=== PATIENT | male | born 1945 | race Caucasian/White ===

== ENCOUNTER 2016-10-24 19:40 | Emergency (ER) | payer MEDICARE, BC ==
--- NOTE | 2016-10-24 20:40 | UC ---
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 HE WAS HOLDING THE BAR OVER HIS HEAD WHEN HIS SHIRT GOT CAUGHT ON A HOOK ON THE TRACTOR AND PREVENTED HIM FROM BEING ABLE TO LOWER THE BAR SAFELY DOWN. IT FELL AND STRUCK HIM ON THE TOP OF HIS HEAD. NO LOC. HE ALSO SUFFERED AN ABRASION TO HIS LEFT ARM AND 2 SMALL LACERATIONS IN LEFT AXILLA. HAS A SLIGHT ALFONSO BUT DENIES ANY NEUROLOGIC SX. UP TO DATE TETANUS. - History of Current Complaint Chief Complaint: UCTrauma Stated Complaint: HEAD INJURY, AND LIP LACERATION Time Seen by Provider: 10/24/16 20:06 Hx Obtained From: Patient, Family/Buttonhole Maker Hand - Onset/Duration: Sudden Onset, Lasting Hours, Still Present Onset Of Pain: Immediate Severity Initially: Moderate Severity Currently: Moderate Pain Intensity: 5 Pain Scale Used: 0-10 Numeric Mechanism Of Injury: Blunt Trauma Aggravating Factor(s): Nothing Alleviating Factor(s): Nothing Associated Signs And Symptoms: Positive: Swelling - HEAD. Negative: Loss Of Consciousness - Allergies/Home Medications Allergies/Adverse Reactions: Allergies Allergy/AdvReac Type Severity Reaction Status Date / Time No Known Allergies Allergy Verified 03/20/15 16:15 Home Medications: Home Medications Multiple Vitamin [Multivitamins] 10/24/16 [History Confirmed 10/24/16] Tamsulosin CAP* [Flomax CAP*] 10/24/16 [History Confirmed 10/24/16] Vitamin B Complex CAP* [B Complex CAP*] 10/24/16 [History] PMH/Surg Hx/FS Hx/Imm Hx Endocrine History Of: Reports: Diabetes - type 2, Thyroid Disease - HYPO, Hypothyroidism Cardiovascular History Of: Reports: Hypertension Denies: Cardiac Disorders Respiratory History Of: Denies: COPD, Asthma GI/ History Of: Denies: Ulcer Psychological History Of: Reports: Bipolar Disorder - Surgical History Surgical History: Yes Surgery Procedure, Year, and Place: lt foot bone spur removal X2, bunionectomy, carpal tunnel repair bilat. bilat rotator cuff injuries. subderal pressure release. fusion done to neck 2 yrs ago. - Family History Known Family History: Positive: Hypertension, Diabetes - Social History Alcohol Use: None Substance Use Type: None Smoking Status (MU): Never Smoked Tobacco - Immunization History Most Recent Tetanus Shot: 11/09/13 Review of Systems Constitutional: Negative Skin: Other - ABRASIONS, LACERATIONS Respiratory: Negative Cardiovascular: Negative Gastrointestinal: Negative Neurological: Headache All Other Systems Reviewed And Are Negative: Yes Physical Exam Triage Information Reviewed: Yes Appearance: Well-Appearing, No Pain Distress, Well-Nourished Vital Signs: Initial Vital Signs Temp 99.1 F 10/24/16 19:46 Pulse 86 10/24/16 19:46 Resp 18 10/24/16 19:46 BP 158/72 10/24/16 19:46 Pulse Ox 96 10/24/16 19:46 Vital Signs Reviewed: Yes Eyes: Positive: Conjunctiva Clear ENT: Positive: Hearing grossly normal, Pharynx normal, TMs normal Neck: Positive: Supple Respiratory: Positive: No respiratory distress, No accessory muscle use Cardiovascular: Positive: Pulses Normal Abdomen Description: Positive: Soft Musculoskeletal: Positive: ROM Intact Neurological: Positive: Alert Psychological: Positive: Normal Response To Family, Age Appropriate Behavior Skin: Positive: Other - 4CM SWELLING TOP OF SCALP WITH CENTRALLY LOCATED 2CM ABRASION. LINEAR ABRASION EXTENDING LENGTH OF LEFT ARM. 2.5CM LINEAR LACERATION LEFT AXILLA. 1.5 CM LINEAR LACERATION LEFT AXILLA. 2.5CM CURVED LACERATION LOWER LIP THROUGH AND THROUGH.. Negative: rashes Procedures - Laceration/Wound Repair 1 Location: mouth - LOWER LIP Description: Irregular - CURVED Anesthesia: Local, 1.0% Length, Depth and Shape: 2.5CM CURVED, THROUGH AND THROUGH Betadine Prep?: No Laceration/Wound Explored: clean Closure: Single Layer Suture Type: Other - 5-0 SURGIPRO Number of Sutures: 5 Layer Closure?: No Sterile Dressing Applied?: Yes 2 Location: upper extremity - LEFT AXILLA Description: Linear Anesthesia: Local, 1.0% Length, Depth and Shape: 2.5CM LINEAR, 2 MM DEEP Betadine Prep?: No Laceration/Wound Explored: clean Closure: Single Layer Suture Type: Other - 5-0 SURGIPRO Number of Sutures: 5 Layer Closure?: No Sterile Dressing Applied?: Yes 3 Location: upper extremity - LEFT AXILLA Description: Linear Anesthesia: Local, 1.0% Length, Depth and Shape: 1.5CM LINEAR, 2MM DEEP Laceration/Wound Explored: clean Closure: Single Layer Suture Type: Other - 5-0 SURGIPRO Number of Sutures: 3 Layer Closure?: No Sterile Dressing Applied?: Yes Diagnostics - Radiology CT HEAD W/O CONTRAST Xray Interpretation: No Acute Changes Radiology Interpretation Completed By: Radiologist Minor Trauma Course/Dx - Differential Dx/Diagnosis Provider Diagnoses: 1. HEAD INJURY. 2. LACERATION REPAIR - LOWER LIP, LEFT AXILLA X 2. 3. ABRASIONS - SCALP AND LEFT ARM Discharge - Discharge Plan Condition: Stable Disposition: HOME Prescriptions: Acetaminop/Codeine 30 MG TAB* [Tylenol/Codeine 30 MG TAB*] 1 - 2 tab PO Q6H PRN #20 tab MDD 8 PRN Reason: Pain Cephalexin CAP* [Keflex 500 CAP*] 1,000 mg PO BID #18 cap Lactobacillus Acidophilu (GG)* [Culturelle*] 1 cap PO BID #20 cap Patient Education Materials: Laceration (ED), Head Injury (ED), Abrasion (ED) Referrals: Sharan Lazcano MD [Primary Care Provider] - If Needed Additional Instructions: GO TO THE ER WITHOUT FAIL IF YOU DEVELOP UNEQUAL PUPILS, VISUAL DISTURBANCE, GAIT INSTABILITY, SPEECH DIFFICULTY, NAUSEA/VOMITING, WORSENING HEADACHE, DIZZINESS, CONFUSION, WEAKNESS OR ANY OTHER CONCERNING SYMPTOMS. APPLY THIN LAYER ANTIBIOTIC OINTMENT UNDER BANDAGE FOR FIRST 3-4 DAYS ONLY. CHANGE BANDAGE DAILY AND NEEDED IF IT BECOMES SOILED OR WET. SEEK FOLLOW-UP IF YOU DEVELOP SPREADING REDNESS OF THE SKIN, PURULENT DRAINAGE, FEVER, INCREASED PAIN OR ANY OTHER CONCERNING SYMPTOMS. RETURN FOR SUTURE REMOVAL IN 10 DAYS
--- NOTE | 2016-10-24 21:09 | RAD ---
Indication: Head trauma. CT of the brain was performed without IV contrast. Ventricular structures are midline. No midline shift is noted. The extraction spaces are unremarkable. There is no evidence of intracranial mass or hemorrhage. No other high or low density lesions are identified. Overall no changes noted since previous exam of May 10, 2016. IMPRESSION: No intracranial mass or hemorrhage is noted.
[2016-10-24] MEDS ORDERED: Lidocaine 1% MPF* 2 ML VIAL INJ ONE (21:17)
[2016-10-24] MEDS ORDERED: Acetaminop/Codeine 30 MG TAB* 1 TAB (300 MG/30 MG) PO ONE (23:01)
[2016-10-24] MEDS ORDERED: Cephalexin CAP* 500 MG PO ONE (23:05)
[2016-10-24 23:13] VITALS: BP 142/75
== END 2016-10-24 23:25 | disposition home or self-care (01) ==
LOC: UCEAST 19:40
DX: S09.90XA Unspecified injury of head, initial encounter (principal); S41.112A Laceration without foreign body of left upper arm, initial encounter; S01.511A Laceration without foreign body of lip, initial encounter; S40.812A Abrasion of left upper arm, initial encounter; W20.8XXA Other cause of strike by thrown, projected or falling object, initial encounter; Y93.89 Activity, other specified; Y92.9 Unspecified place or not applicable; E11.8 Type 2 diabetes mellitus with unspecified complications; E03.9 Hypothyroidism, unspecified; I10 Essential (primary) hypertension; F31.9 Bipolar disorder, unspecified
CPT/HCPCS: 12002; 12011; 70450; 99213; A9270-GY; G0463

== ENCOUNTER 2019-04-03 08:32 | Inpatient (IN) | payer MEDICARE, OTHER ==
--- OUTSIDE RECORDS SUMMARY | 2019-04-03 15:34 | XMS REPORT | Summary of Care ---
:1945 Author Organization [facility] Address [address] [facility] [place] [address] Care Team Providers Name Role Phone Sharan Lazcano MD Primary Care Provider Reason for Referral MRI/CAT/PET Scan (Routine) Status Reason Specialty Diagnoses / Referred By Referred To Procedures Contact Contact Authorized Diagnoses Spinal stenosis of cervical region [place], Procedures MR CERVICAL SPINE WO CONTRAST MD Fabio [address] [facility] [place] [address] Reason for Visit Reason Comments Neck Pain Refer to Department Only (Routine) Status Reason Specialty Diagnoses / Referred By Referred To Procedures Contact Contact Closed NEUROSURGERY / Diagnoses Radiculopathy, unspecified spinal region John Martinez, Neurosurgery [address] [place] [address] Encounter Details Date Type Department Care Team Description 02/16/2019 Office Visit [facility] Neurosurgery [place], Cervical spinal stenosis (Primary Dx); [address] [facility] MD Fabio Radiculopathy, unspecified spinal region; [place] [address] [address] Spinal stenosis of cervical region [phone] [place] [address] Allergies No Known Allergiesdocumented as of this encounter (statuses as of 02/16/2019) Medications Medication Sig Dispensed Refills Start Date End Date Status metroNIDAZOLE (FLAGYL) Take 250 mg by 0 Active 250 MG Oral Tab mouth THREE TIMES DAILY. amlodipine-benazepril Take 1 Cap by 0 Active (LOTREL) 5-20 MG Oral mouth DAILY. Cap glipiZIDE (GLUCOTROL XL) Take 10 mg by 0 Active 10 MG Oral TABLET SR 24 mouth DAILY. HR metFORMIN (GLUCOPHAGE) Take 500 mg by 0 Active 500 MG Oral Tab mouth. LITHIUM CARBONATE PO Take 900 mg by 0 Active mouth. sertraline (ZOLOFT) 100 Take 100 mg by 0 Active MG Oral Tab mouth DAILY. Rosuvastatin Calcium Take by mouth. 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 documented as of this encounter Last Filed Vital Signs Vital Sign Reading Time Taken Comments Blood Pressure 128/68 02/16/2019 9:27 AM EDT Pulse - - Temperature - - Respiratory Rate - - Oxygen Saturation - - Inhaled Oxygen Concentration - - Weight 95.3 kg (210 lb) 02/16/2019 9:27 AM EDT Height 177.8 cm (5' 10") 02/16/2019 9:27 AM EDT Body Mass Index 30.13 02/16/2019 9:27 AM EDT documented in this encounter Progress Notes Fabio Mcdaniel MD - 02/16/2019 9:30 AM EDT PATIENT: Ashutosh Mcfarland Jr : 1945 DATE OF SERVICE: 02/16/2019 REFERRING PRACTITIONER: John Martinez PRIMARY CARE PROVIDER: Sharan Lazcano CHIEF COMPLAINT: Chief Complaint Patient presents with Neck Pain HISTORY OF PRESENT ILLNESS: Mr. Mcfarland is a 73-year-old gentleman with a progressive history of weakness and numbness affecting the hands and arms and legs which has worsened over the last year. He is now using a walker because ofdifficulty standing up straight. He underwent carpal tunnel release many years ago with relief of his initial symptoms. He now complains of numbness in both hands which affects multiple digits of thehands. Recent nerve conduction studies by report suggest carpal tunnel syndrome plus radiculopathy. He denies bowel or bladder difficulty. He is retired. He has no films whatsoever. Past Medical History: Diagnosis Date Carpal tunnel syndrome bilateral Past Surgical History: Procedure Laterality Date BUNIONECTOMY NEC 2006 OTHER BONE REPAIR shoulder surgery HI RADICAL RESEC RADIAL HEAD/NECK neck surgery HI SPINE SURGERY PROCEDURE UNLISTED low back History reviewed. No pertinent family history. Social History Socioeconomic History Marital status: Spouse name: Not on file Number of children: Not on file Years of education: Not on file Highest education level: Not on file Occupational History Not on file Social Needs Financial resource strain: Not on file Food insecurity: Worry: Not on file Inability: Not on file Transportation needs: Medical: Not on file Non-medical: Not on file Tobacco Use Smoking status: Never Smoker Smokeless tobacco: Never Used Substance and Sexual Activity Alcohol use: Not on file Drug use: Not on file Sexual activity: Not on file Lifestyle Physical activity: Days per week: Not on file Minutes per session: Not on file Stress: Not on file Relationships Social connections: Talks on phone: Not on file Gets together: Not on file Attends scientology service: Not on file Active member of club or organization: Not on file Attends meetings of clubs or organizations: Not on file Relationship status: Not on file Intimate partner violence: Fear of current or ex partner: Not on file Emotionally abused: Not on file Physically abused: Not on file Forced sexual activity: Not on file Other Topics Concern Not on file Social History Narrative Not on file Current Outpatient Medications Medication amlodipine-benazepril (LOTREL) 5-20 MG Oral Cap glipiZIDE (GLUCOTROL XL) 10 MG Oral TABLET SR 24 HR LITHIUM CARBONATE PO metFORMIN (GLUCOPHAGE) 500 MG Oral Tab metroNIDAZOLE (FLAGYL) 250 MG Oral Tab Rosuvastatin Calcium (CRESTOR) 5 MG Oral Tab sertraline (ZOLOFT) 100 MG Oral Tab No Known Allergies REVIEW OF SYSTEMS: Psychological ROS: negative Ophthalmic ROS: negative ENT ROS: negative Hematological and Lymphatic ROS: negative Endocrine ROS: negative Respiratory ROS: no cough, shortness of breath, or wheezing Cardiovascular ROS: no chest pain or dyspnea on exertion Gastrointestinal ROS: no abdominal pain, change in bowel habits, or black or bloody stools Genito-Urinary ROS: negative Musculoskeletal ROS: negative Neurological ROS: negative PHYSICAL EXAMINATION: BP 128/68 | Ht 5' 10" (1.778 m) | Wt 210 lb (95.3 kg) | BMI 30.13 kg/m Body mass index is 30.13 kg/m. GENERAL: alert, oriented, no acute distress. SKIN: normal, no rashes or abnormalities noted. HEENT: conjunctivae are clear, nasopharynx is with mild edema, pink mucosa, and clear secretions, oropharynx is clear. NECK: Normal range of motion LOWER BACK: Normal range of motion LUNGS: clear to auscultation bilaterally. HEART: Regular rate and rhythm without murmurs or gallops. ABDOMEN: Normal bowel sounds without distension NEUROLOGICAL: CONSTITUTIONAL: The patient appears to be in no acute distress. MUSCULOSKELETAL: His gait is somewhat wide-based and he walks with the aid of a walker. Motor tone is normal in both upper and lower extremities. Upper Extremity Deltoid Tricep Bicep Finger Extension Wrist Extension Intrinsics Windlasser Right 4/5 4/5 4/5 5/5 5/5 5/5 5/5 Left 4/5 4/5 4/5 5/5 5/5 5/5 5/5 Lower Extremity Hip Flexion Knee Flexion Knee Extension Dorsi Flexion Plantar Flexion EHL Right 4/5 5/5 5/5 5/5 5/5 5/5 Left 4/5 5/5 5/5 5/5 5/5 5/5 NEUROLOGICAL: Oriented to time, place, and person. Memory appears to be grossly intact. Language function appears to be normal with normal receptive and motor speech function. CRANIAL NERVES: 2nd cranial nerve: Intact 3rd, 4th, and 6th cranial nerves: pupils equal round and reactive to light. Full EOMs. 5th cranial nerve: Intact 7th cranial nerve: Intact 8th cranial nerve: Intact 9th, 10th cranial nerves: Intact 11th cranial nerve: Intact. 12th cranial nerve: Intact SENSATION: There is loss of light touch sensation in the hands but pinprick does seem to be preserved in both the arms and legs. REFLEXES: Biceps BR Triceps Knee Ankle Right 2+ 2+ 2+ 2+ 2+ Left 2+ 2+ 2+ 2+ 2+ Day's sign: Negative Babinski: Negative COORDINATION: Knwetz-sbaz-rjwjaw examination done well. IMPRESSION / PLAN: ICD-9-CM ICD-10-CM 1. Cervical spinal stenosis 723.0 M48.02 2. Radiculopathy, unspecified spinal region 729.2 M54.10 REFER TO NEUROSURGERY 3. Spinal stenosis of cervical region 723.0 M48.02 MR CERVICAL SPINE WO CONTRAST Medical decision making: This gentleman has significant weakness of both the upper and lower extremities. Given his subjective symptoms of numbness as well I suspect he has cervical myelopathy which is rapidly progressing. I would like to obtain a MRI of his cervical spine and have him return as soon as possible. Author: Fabio Mcdaniel MD 02/16/2019 09:38 documented in this encounter Plan of Treatment Date Type Specialty Care Team Description 02/23/2019 Ancillary Procedure Radiology 03/09/2019 Office Visit Neurosurgery Fabio Mcdaniel MD [address] [place] [address] [phone] Name Type Priority Associated Diagnoses Order Schedule MR CERVICAL SPINE WO Imaging Routine Spinal stenosis of Expected: 2018, CONTRAST cervical region Expires: 02/16/2020 Health Maintenance Due Date Last Done Comments MEDICARE ANNUAL WELLNESS VISIT 1945 DEPRESSION SCREENING 1958 HIV SCREENING 1961 LIPID DISORDER SCREENING 1964 HEPATITIS C SCREENING 1986 ZOSTER IMMUNIZATION SERIES (1 of 1996 2) FALL RISK ASSESSMENT 2011 PNEUMOCOCCAL 65+YRS (1 of 2 - 2011 PCV13) COLONOSCOPY SCREENING 08/23/2018 08/23/2009 INFLUENZA VACCINE (#1) 2019 HPV IMMUNIZATION SERIES Aged Out No longer eligible based on patient's age to complete this topic MENINGOCOCCAL VACCINE IMM Aged Out No longer eligible based on patient's age to complete this topic documented as of this encounter Results Not on filedocumented in this encounter Visit Diagnoses Diagnosis Cervical spinal stenosis - Primary Spinal stenosis in cervical region Radiculopathy, unspecified spinal region Spinal stenosis of cervical region Spinal stenosis in cervical region documented in this encounter Insurance Payer Benefit Plan / Subscriber ID Effective Phone Address Type Group Dates MEDICARE MEDICARE PART A xxxxxxxxxxx 2004-Prese Medicare & B nt COMMERCIAL COMMERCIAL xxxxxxxxx Effective for Commercial GENERIC GENERIC PLAN all dates documented as of this encounter
--- OUTSIDE RECORDS SUMMARY | 2019-04-03 15:34 | XMS REPORT | Summary of Care ---
:1945 Author Organization [facility] Address [address] [facility] [place] [address] Care Team Providers Name Role Phone Sharan Lazcano MD Primary Care Provider Reason for Visit Reason Comments Neck Pain follow up to mri Encounter Details Date Type Department Care Team Description 03/09/2019 Office Visit [facility] Neurosurgery [place], Cervical spinal [address] [facility] MD Fabio stenosis (Primary Dx) [place] [address] 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 Hypercholesterolemia 08/17/2009 Overview: W/normal triglycerides documented as of this encounter (statuses as of 03/09/2019) Social History Tobacco Use Types Packs/Day Years [...] Sign Reading Time Taken Comments Blood Pressure 123/70 03/09/2019 9:43 AM EDT Pulse - - Temperature - - Respiratory Rate - - Oxygen Saturation - - Inhaled Oxygen Concentration - - Weight 95.3 kg (210 lb) 03/09/2019 9:43 AM EDT Height 177.8 cm (5' 10") 03/09/2019 9:43 AM EDT Body Mass Index 30.13 03/09/2019 9:43 AM EDT documented in this encounter Progress Notes Fabio Mcdaniel MD - 03/09/2019 9:50 AM EDT PATIENT: Ashutosh Mcfarland Jr : 1945 DATE OF SERVICE: 03/09/2019 REFERRING PRACTITIONER: Sharan Lazcano PRIMARY CARE PROVIDER: Sharan Lazcano CHIEF COMPLAINT: Chief Complaint Patient presents with Neck Pain follow up to mri HISTORY OF PRESENT ILLNESS: Mr. Mcfarland returns with a MRI scan that shows significant stenosis with pannus formation at C1-2. Subluxation is not seen. This definitely explains his symptoms I think he would benefit from decompression and fusion. Given his previous surgery I would think a C1-C4 stabilization would be adequate although we cannot rule out having to incorporate the occiput at this time. Risk and benefits of surgery were discussed with the patient. Past Medical History: Diagnosis Date Carpal tunnel syndrome bilateral Past Surgical History: Procedure Laterality Date BUNIONECTOMY NEC 2006 OTHER BONE REPAIR shoulder surgery CT RADICAL RESEC RADIAL HEAD/NECK neck surgery CT SPINE SURGERY PROCEDURE UNLISTED low back History [...] file Gets together: Not on file Attends confucianist service: Not on file Active member of [...] Tab No Known Allergies REVIEW OF SYSTEMS: BP 123/70 | Ht 5' 10" (1.778 m) | Wt 210 lb (95.3 kg) | BMI 30.13 kg/m Body mass index is 30.13 kg/m. Psychological ROS: negative Ophthalmic ROS: negative ENT ROS: negative Hematological and Lymphatic ROS: negative Endocrine ROS: negative Respiratory ROS: no cough, shortness of breath, or wheezing Cardiovascular ROS: no chest pain or dyspnea on exertion Gastrointestinal ROS: no abdominal pain, change in bowel habits, or black or bloody stools Genito-Urinary ROS: negative Musculoskeletal ROS: negative Neurological ROS: negative Physical examination: Lung anthony were clear Heart exam revealed a regular rate and rhythm. The abdomen was soft. His neurological examination was unchanged from his previous initial note. IMPRESSION / PLAN: ICD-9-CM ICD-10-CM 1. Cervical spinal stenosis 723.0 M48.02 Medical decision making: We plan to proceed with C1 laminectomy for decompression of stenosis at C1 to with a C1-C4 posterior fusion, possibly also including the occiput. Author: Fabio Mcdaniel MD 03/09/2019 09:58 documented in this encounter Plan of Treatment Health Maintenance Due Date Last Done Comments [...] - Primary Spinal stenosis in cervical region documented in this encounter Insurance Payer Benefit Plan / Subscriber ID Effective Phone Address Type Group Dates MEDICARE MEDICARE PART A xxxxxxxxxxx 2004-Prese Medicare & B nt COMMERCIAL COMMERCIAL xxxxxxxxx Effective for Commercial GENERIC GENERIC PLAN all dates documented as of this encounter
[2019-04-03] MEDS ORDERED: Docusate CAP* 100 MG PO PRN (16:29)
[2019-04-03] MEDS ORDERED: Senna TAB 8.6 mg* TAB PO PRN (16:29)
[2019-04-03] MEDS ORDERED: Acetaminophen TAB* 325 MG PO PRN (16:29)
[2019-04-03] MEDS ORDERED: Magnesium Hydroxide LIQ* 30 ML UDC PO PRN (16:29)
[2019-04-03] MEDS ORDERED: Insulin REGULAR(*) 1 UNITS UNIT SUBCUT ONE (17:13)
[2019-04-03] MEDS: glipiZIDE TAB* 5 MG PO SCH (17:43)
[2019-04-03] MEDS: oxyCODONE/Acetamin 5/325 MG* TAB PO PRN (17:43)
[2019-04-03] MEDS: metFORMIN* 500 MG TAB PO SCH (17:43)
--- NOTE | 2019-04-03 19:45 | HP ---
HISTORY AND PHYSICAL: DATE OF ADMISSION: 04/03/19 REASON FOR ADMISSION: Cervical myelopathy, status post cervical fusion from C1 to C4. HISTORY OF PRESENT ILLNESS: Ashutosh Mcfarland is a 73-year-old male. He has a medical history significant for diabetes mellitus as well as bipolar disease. About 2 years ago, the patient had significant numbness in his hands. At first , it was thought it was diabetic peripheral neuropathy. He was sent for EMG nerve conduction studies and was diagnosed with carpal tunnel. He was sent to a hand surgeon. The hand surgeon thought he might have more going on than carpal tunnel and referred the patient to a neurosurgeon. He saw Dr. Fabio Mcdaniel at [place] and was sent for an MRI of his cervical spine. The MRI was done on 02/23/19. It did show central spinal canal narrowing at the mid cervical levels with minimal cord impingement. It also showed a marked central spinal canal stenosis at the C1 level impinging and deforming the spinal cord. Although no myelopathic changes were seen on MRI, the patient was demonstrating myelopathy on exam. The patient was admitted to [facility] on 04/01/19. He underwent a posterior C1 laminectomy with a C1 through C4 fusion. After surgery, the patient might have had some minimal improvement in his weakness and balance, but was felt to have physical therapy and occupational therapy needs. He is now being admitted for inpatient rehab so that he might return to independent living. PAST MEDICAL HISTORY: Significant for the aforementioned bipolar disease, diabetes. He has got a history of ADHD. He has hypercholesterolemia, hypertension, hypothyroidism, and he has significant osteoarthritis in his hands and peripheral neuropathy affecting both feet. CURRENT MEDICATIONS: Include: 1. Norvasc. 2. Glucotrol. 3. Insulin. 4. Synthroid. 5. Lisinopril. 6. Glucophage. 7. Percocet for pain control. 8. Crestor. 9. Zoloft. 10. Topamax. ALLERGIES: He has no known drug allergies. SOCIAL HISTORY: He is a nonsmoker, nondrinker. He lives with his in a two -story house. There are two steps to enter. REVIEW OF SYSTEMS: The patient reports no current shortness of breath or chest pain. PHYSICAL EXAMINATION VITAL SIGNS: The patient's temperature is 97.8, blood pressure is 128/67, pulse is 100, respirations 18. HEENT: His extraocular movements are intact. Tongue is midline. NECK: Immobilized in a cervical collar. LUNGS: Sounded clear to auscultation bilaterally. HEART: Heart sounds are regular. S1 and S2 are audible. ABDOMEN: Soft and nontender. EXTREMITIES: His hands were examined. There is wasting of the intrinsic hand muscles and some deformities of the fingers consistent with osteoarthritis. His peripheral pulses are intact. NEUROLOGIC: Sensation was diminished in both his feet and his hands. Muscle strength is roughly 4/5 in his upper extremities and 4+/5 in his lower extremities. FUNCTIONAL EXAM: He transfers with contact guard to min assist. ASSESSMENT: Cervical myelopathy due to cervical cord compression at C1. PLAN: Integrate him into a comprehensive and therapeutic rehab program with the following goals: 1. Physical Therapy will work with the patient. They are going to work on functional transfer training, ambulation training with a walker. 2. Occupational Therapy will see the patient, work on his activities of daily living including toileting and toilet transfers. 3. Pharmaceutical prophylaxis for DVT is not indicated because of his recent cervical surgery. We are going to use BRAD stockings. 4. For his diabetes, we are going to continue his glipizide and metformin. We are going to do fingersticks 4 times a day with sliding scale insulin coverage. 5. For his bipolar disease, we will continue him on Zoloft and Topamax. 6. For his hypertension, we will continue him on amlodipine. We will give him lisinopril instead of his usual benazepril. 7. For his hypothyroidism, continue Synthroid. 8. For his hypercholesterolemia, continue Crestor. 9. security services manager will be closely involved to make sure that any services and equipment the patient requires are in place prior to discharge. 10. Family training as appropriate. 11. Home with appropriate services. ESTIMATED LENGTH OF STAY: 7 to 10 days. [id number]/CPS #: [id number] ETHAN
[2019-04-03] MEDS: Insulin REGULAR(*) 1 UNITS UNIT SUBCUT SCH (20:50)
[2019-04-03] MEDS: Topiramate TAB(*) 25 MG PO SCH (21:30)
[2019-04-03] MEDS: Sertraline* 100 MG TAB PO SCH (21:30)
[2019-04-04] MEDS: Levothyroxine TAB* 100 MCG TAB PO SCH (06:12)
[2019-04-04] MEDS ORDERED: Insulin REGULAR(*) 1 UNITS UNIT SUBCUT SCH (07:30)
[2019-04-04] MEDS: Insulin REGULAR(*) 1 UNITS UNIT SUBCUT SCH ×2 (08:35→12:18)
[2019-04-04] MEDS: metFORMIN* 500 MG TAB PO SCH ×2 (08:36→17:20)
[2019-04-04] MEDS: glipiZIDE TAB* 5 MG PO SCH ×2 (08:36→17:20)
[2019-04-04] MEDS: Topiramate TAB(*) 25 MG PO SCH ×2 (08:36→19:39)
[2019-04-04] MEDS: Lisinopril TAB* 10 MG PO SCH (08:36)
[2019-04-04] MEDS: amLODIPine TAB* 5 MG PO SCH (08:36)
[2019-04-04] MEDS ORDERED: Dextrose 50% VIAL 50 ml IV PUSH PRN (14:31)
--- NOTE | 2019-04-04 14:37 | PN ---
Progress Note Date of Service: 04/04/19 Note: RADHA THOMAS JR was visited. Therapy notes read and reviewed. He was able to do therapy today and his diarrhea has stopped. Otherwise doing okay Current Medications: Active Medications Generic Name Dose Route Start Last Admin Trade Name Freq PRN Reason Stop Dose Admin Acetaminophen 650 mg 04/03/19 16:29 Tylenol Tab* PO Q6H PRN MILD PAIN or TEMP > 100.4 Amlodipine Besylate 5 mg 04/04/19 09:00 04/04/19 08:36 Norvasc Tab* PO 5 mg DAILY LISA Administration Atorvastatin Calcium 20 mg 04/04/19 17:00 Lipitor* PO 1700 LISA Docusate Sodium 100 mg 04/03/19 16:29 Colace Cap* PO BID PRN CONSTIPATION Glipizide 5 mg 04/03/19 17:00 04/04/19 08:36 Glucotrol Tab* PO 5 mg 0800,1700 LISA Administration Levothyroxine Sodium 100 mcg 04/04/19 06:00 04/04/19 06:12 Synthroid Tab* PO 100 mcg DAILY@0600 LISA Administration Lisinopril 20 mg 04/04/19 09:00 04/04/19 08:36 Prinivil Tab* PO 20 mg DAILY LISA Administration Loperamide HCl 2 mg 04/03/19 16:38 Imodium Cap* PO .SEE DIRECTIONS PRN DIARRHEA Magnesium Hydroxide 30 ml 04/03/19 16:29 Milk Of Magnesia Liq* PO Q6H PRN CONSTIPATION Metformin HCl 500 mg 04/03/19 17:00 04/04/19 08:36 Glucophage* PO 500 mg 0800,1700 LISA Administration Oxycodone/Acetaminophen 1 tab 04/03/19 16:43 04/03/19 17:43 Percocet 5/325 Tab* PO 1 tab Q4H PRN Administration PAIN - MODERATE Senna 2 tab 04/03/19 16:29 Senokot 8.6 Mg Tab* PO BEDTIME PRN CONSTIPATION Sertraline HCl 200 mg 04/03/19 21:00 04/03/19 21:30 Zoloft* PO 200 mg 2100 LISA Administration Topiramate 25 mg 04/03/19 21:00 04/04/19 08:36 Topamax(*) PO 25 mg BID LISA Administration Vital Signs: Vital Signs Temp Pulse Resp BP Pulse Ox 98.6 F 89 16 136/70 97 04/04/19 06:08 04/04/19 06:08 04/04/19 08:00 04/04/19 06:08 04/04/19 08:00 Lab Results: Laboratory Results - last 24 hr 04/03/19 04/03/19 04/04/19 17:00 20:21 07:23 POC Glucose (mg/dL) 276 H 242 H 199 H 04/04/19 12:03 POC Glucose (mg/dL) 172 H Exam: GENERAL: In no distress NECK: Immobilized in collar LUNGS: Clear bilaterally HEART: Reg rhythm ABDOMEN: Soft EXTREMITIES: Intrinsic muscle wasting in hands and feet NEUROLOGIC: decreased sensation in hands and feet. Muscle strength 4/5 handgrip , 4+/5 otherwise Assessment/Plan: 1. Cervical Myelopathy C1, S/P C1-4 fusion: Collar on when OOB. PT/OT 2. Diabetes: Metformin/Glipizide/SSI 3. Bipolar Disease: Topamax/Zoloft 4. Hypothyroidism: Synthroid 5. HTN: Lisinopril (instead of Benazepril) and Norvasc 6. DVT Prophylaxis: TEDs 7. Advance Directives: Full code. is HCP 04/04/19 14:36 04/04/19 14:38 04/04/19 14:39
[2019-04-04] MEDS: Insulin LISPRO* 1 UNITS UNIT SUBCUT SCH ×2 (17:19→22:04)
[2019-04-04] MEDS: Atorvastatin* 20 MG TAB PO SCH (17:20)
[2019-04-04] MEDS: Loperamide CAP* 2 MG PO PRN ×2 (19:38→21:33)
[2019-04-04] MEDS: Sertraline* 100 MG TAB PO SCH (19:39)
[2019-04-05] MEDS: Levothyroxine TAB* 100 MCG TAB PO SCH (04:55)
[2019-04-05] MEDS: Lisinopril TAB* 10 MG PO SCH (08:29)
[2019-04-05] MEDS: amLODIPine TAB* 5 MG PO SCH (08:29)
[2019-04-05] MEDS: metFORMIN* 500 MG TAB PO SCH ×2 (08:29→17:13)
[2019-04-05] MEDS: Topiramate TAB(*) 25 MG PO SCH ×2 (08:29→21:39)
[2019-04-05] MEDS: Insulin LISPRO* 1 UNITS UNIT SUBCUT SCH ×4 (08:29→21:35)
[2019-04-05] MEDS: glipiZIDE TAB* 5 MG PO SCH ×2 (08:29→17:13)
[2019-04-05] MEDS: Atorvastatin* 20 MG TAB PO SCH (17:13)
--- NOTE | 2019-04-05 17:24 | PN ---
Progress Note Date of Service: 04/05/19 Note: ANOOPSAEED JALLOHAngel FUENTES was visited. Nursing notes read and reviewed. Blood sugars are still a little high and blood pressures were low last night. Will cut Lisinopril to 10 Current Medications: Active Medications Generic Name Dose Route Start Last Admin Trade Name Freq PRN Reason Stop Dose Admin Acetaminophen 650 mg 04/03/19 16:29 Tylenol Tab* PO Q6H PRN MILD PAIN or TEMP > 100.4 Amlodipine Besylate 5 mg 04/04/19 09:00 04/05/19 08:29 Norvasc Tab* PO 5 mg DAILY LISA Administration Atorvastatin Calcium 20 mg 04/04/19 17:00 04/05/19 17:13 Lipitor* PO 20 mg 1700 LISA Administration Dextrose 25 ml 04/04/19 14:31 Dextrose 50% Vial 50 Ml* IV PUSH .FOR FS < 60 - SS PRN FS < 60 Docusate Sodium 100 mg 04/03/19 16:29 Colace Cap* PO BID PRN CONSTIPATION Glipizide 5 mg 04/03/19 17:00 04/05/19 17:13 Glucotrol Tab* PO 5 mg 0800,1700 LISA Administration Insulin Human Lispro 0 - 12 units 04/04/19 16:30 04/05/19 17:14 Humalog* SUBCUT 4 unit ACHS LISA Administration Protocol Levothyroxine Sodium 100 mcg 04/04/19 06:00 04/05/19 04:55 Synthroid Tab* PO 100 mcg DAILY@0600 LISA Administration Lisinopril 20 mg 04/04/19 09:00 04/05/19 08:29 Prinivil Tab* PO 20 mg DAILY LISA Administration Loperamide HCl 2 mg 04/03/19 16:38 04/04/19 21:33 Imodium Cap* PO 2 mg .SEE DIRECTIONS PRN Administration DIARRHEA Magnesium Hydroxide 30 ml 04/03/19 16:29 Milk Of Magnesia Liq* PO Q6H PRN CONSTIPATION Metformin HCl 500 mg 04/03/19 17:00 04/05/19 17:13 Glucophage* PO 500 mg 0800,1700 LISA Administration Oxycodone/Acetaminophen 1 tab 04/03/19 16:43 04/03/19 17:43 Percocet 5/325 Tab* PO 1 tab Q4H PRN Administration PAIN - MODERATE Senna 2 tab 04/03/19 16:29 Senokot 8.6 Mg Tab* PO BEDTIME PRN CONSTIPATION Sertraline HCl 200 mg 04/03/19 21:00 04/04/19 19:39 Zoloft* PO 200 mg 2100 LISA Administration Topiramate 25 mg 04/03/19 21:00 04/05/19 08:29 Topamax(*) PO 25 mg BID LISA Administration Vital Signs: Vital Signs Temp Pulse Resp BP Pulse Ox 98.2 F 80 16 113/56 98 04/05/19 04:53 04/05/19 04:53 04/05/19 04:53 04/05/19 04:53 04/05/19 08:00 Lab Results: Laboratory Results - last 24 hr 04/04/19 04/04/19 04/05/19 16:34 20:20 07:34 POC Glucose (mg/dL) 140 H 250 H 208 H 04/05/19 12:02 POC Glucose (mg/dL) 175 H Exam: GENERAL: In no distress NECK: Immobilized in collar LUNGS: Clear bilaterally HEART: Reg rhythm ABDOMEN: Soft EXTREMITIES: Intrinsic muscle wasting in hands and feet NEUROLOGIC: decreased sensation in hands and feet. Muscle strength 4/5 handgrip , 4+/5 otherwise Assessment/Plan: 1. Cervical Myelopathy C1, S/P C1-4 fusion: Collar on when OOB. PT/OT 2. Diabetes: Metformin/Glipizide/SSI 3. Bipolar Disease: Topamax/Zoloft 4. Hypothyroidism: Synthroid 5. HTN: Lisinopril (instead of Benazepril) and Norvasc, cut lisinopril to 10 6. DVT Prophylaxis: TEDs 7. Advance Directives: Full code. is HCP 04/05/19 17:25
[2019-04-05] MEDS ORDERED: amLODIPine TAB* 5 MG PO SCH (17:26)
[2019-04-05] MEDS: Sertraline* 100 MG TAB PO SCH (21:39)
[2019-04-06 04:41] LABS: ABS Eosinophils 0.1 10^3/ul (0-0.6); ABS Lymphocytes 1.2 10^3/ul (1.0-4.8); ABS Monocytes 0.5 10^3/ul (0-0.8); ABS Neutrophils 3.2 10^3/ul (1.5-7.7); Eosinophil % 2.6 %; Hematocrit 36 % (42-52); Hemoglobin 12.7 g/dL (14.0-18.0); Lymphocyte % 23.4 %; Mean Corpuscular HGB Conc 35 g/dL (31-36); Mean Corpuscular Hemoglobin 31 pg (27-31); Mean Corpuscular Volume 87 fL (80-94); Mean Platelet Volume 7.2 fL (7.4-10.4); Nucleated Red Blood Cells % 0.2; Platelet Count 134 10^3/uL (150-450); Red Blood Count 4.16 10^6 /uL (4.18-5.48); Red Cell Distribution Width 14 % (10-15)
[2019-04-06 04:56] LABS: Albumin 3.8 g/dL (3.2-5.2); Albumin/Globulin Ratio 1.6 (1-3); BUN/Creatinine Ratio 31.1 (8-20); Calcium 9.1 mg/dL (8.6-10.3); EGFR African American 157.2 (>60); EGFR Non-African American 129.9 (>60); Globulin 2.4 g/dL (2-4); Total Bilirubin 0.8 mg/dL (0.2-1.0); Total Protein 6.2 g/dL (6.4-8.9)
[2019-04-06] MEDS: Levothyroxine TAB* 100 MCG TAB PO SCH (06:02)
[2019-04-06] MEDS: metFORMIN* 500 MG TAB PO SCH ×2 (08:09→17:33)
[2019-04-06] MEDS: glipiZIDE TAB* 5 MG PO SCH ×2 (08:10→17:33)
[2019-04-06] MEDS: Insulin LISPRO* 1 UNITS UNIT SUBCUT SCH ×4 (08:10→21:03)
[2019-04-06] MEDS: Lisinopril TAB* 10 MG PO SCH (08:10)
[2019-04-06] MEDS: Topiramate TAB(*) 25 MG PO SCH ×2 (08:10→21:05)
--- NOTE | 2019-04-06 12:42 | PMRUTEAM ---
PMRU: Team Meeting Current Status: Physical Therapy: Current Status Current Rolling Status Setup or Clean-up Assist Current Supine <-> Sit Status Setup or Clean-up Assist Current Sit <-> Stand Status Partial/Moderate Current Bed <-> Chair Status Partial/Moderate Transfer/Bed Mobility Rolling Walker Recommended Devices Current Picking Up Object Partial/Moderate Status Current Car Transfer Status Not attempted due to Current Ambulation Assistance Partial/Moderate Status Ambulation Assistive Device Rolling Walker Ambulation Conditions Two or More Turns Current Ambulation Distance 2x100' Manual Wheelchair Control/ Bilateral LE's Technique Current Wheelchair Propulsion Supervision/Touching Ability Status Wheelchair Distance (ft) 3x50' Current Stair Climbing Status Partial/Moderate Stair Climbing Assistive Left Railing,Right Railing Devices Number of Stairs Climbed 3 Current Curb Assistance Status Partial/Moderate Curb Assistive Devices Rolling Walker Occupational Therapy: Current Status Current Upper Body Dressing Partial/Moderate Status Current Lower Body Dressing Substantial/Maximal Status Current Footwear Status Dependent Current Bathing Status Partial/Moderate Current Grooming Status Setup or Clean-up Assist Current Toileting Status Supervision/Touching Current Toilet Transfer Status Supervision/Touching Current Eating Status Independent Nursing: Current Status Skin Deviations [Bilateral Abrasion Lower Anterior Leg] Skin Deviations [Posterior Incision Midline Cervical Spine] Skin Deviation Description [ washed with soap and water. r lower leg area open. Bilateral Lower Anterior Leg] l lower leg area healing well. Optifoam applied to both Skin Deviation Description [ intact. healing well. no drainage. washed with Posterior Midline Cervical soap and water. telfa applied. pads changed to Spine] cervical collar. Rec Therapy: Current Status Summary of Assessment and Pt. was open to conversation and cooperative Clinical Impression throughout. Pt.'s was present and she contributed to the conversation as well. Pt. identified with interests and involvement in most of them prior to admission. Pt. was interested in pet therapy and continued leisure visits. Treatment Goals Pt. will engage in leisure activities while on the unit. Treatment Plan Provide recreation therapy and encourage involvement. Goals: Physical Therapy: Goals Goals to Be Accomplished in ( 5-7 Days) Goal: Rolling Assistance Independent Goal Supine <-> Sit Status Independent Goal Sit <-> Stand Status Independent Goal Bed <-> Chair Status Independent Transfer/Bed Mobility Rolling Walker Recommended Devices Goal: Picking Up Object Independent Goal: Car Transfer Status Setup or Clean-up Assist Goal: Ambulation Assistance Independent Ambulation Assistive Devices Rolling Walker Ambulation Distance (ft) 150 Goal: Stairs Assistance Independent Stairs Recommended Devices One Rail Number of Stairs flight Goal: Curb Assistance Independent Goal: Home Exercise Program Independent Assistance Occupational Therapy: Goals Goals to be Completed in (Days 7-10 days ) Goal Upper Body Dressing Independent Routine Goal Lower Body Dressing Independent Routine Goal Footwear Status Independent Goal Bathing Routine (OT) Independent Goal Grooming Routine Independent Goal Toilet Hygiene and Independent Clothing Management Routine Goal Toilet Transfer Routine Independent Goal Functional Transfers for Independent ADL Goal Feeding Routine Independent Care Plan: Care Plan ADL's - Improve/Maintain Start: 04/03/19 17:52 Freq: DAILY@0700,1900 Status: Active Target: 04/10/19 Protocol: Activity Type Activity Date Activity User E-Sign Co-Sign Detail Recorded Client Recorded Date Recorded By Document 04/06/19 11:56 [id number] 04/06/19 11:56 [id number] 04/06/19 11:56 PMRU Outcome: ADL's/ADL Transfers Orders/Interventions Occupational Therapy Evaluation & Treatment Communication Tool in Patient Room Device Yes Address Deficits Secondary To: cervical decompression sx Patient to receive OT 5x/wk for 60-120 Therex min/day Self Care Management Group Therapy UE/LE ADL's with Assist Yes: Shahriar UB, Chloe LB ADL Transfers with Assist Yes: Shahriar Toileting: Transfers,Clothing Management Yes: Shahriar ,Hygeine w/Assist Light Kitchen/Laundry w/Assist No Other Outcome/Goals Pt participated well in treatment session, does report lack of motivation, however with encouragement did report it felt better to get dressed in his own clothes rather than stay in hospital gown. Progression Toward Outcome/Goals Progressing Communication-Improve/Maintain Start: 04/03/19 17:52 Freq: DAILY@0700,1900 Status: Active Target: 04/10/19 Protocol: Activity Type Activity Date Activity User E-Sign Co-Sign Detail Recorded Client Recorded Date Recorded By Document 04/06/19 08:00 [id number] 04/06/19 10:36 [id number] 04/06/19 08:00 PMRU Outcome: Communication/Cognitive Status Current Communication Outcome/Goals Makes Needs Known Effectively Progression Toward Outcomes/Goals Progressing Coping/Psych-Improve/Maintain Start: 04/03/19 17:52 Freq: DAILY@699,[id number] Status: Active Target: 04/10/19 Protocol: Activity Type Activity Date Activity User E-Sign Co-Sign Detail Recorded Client Recorded Date Recorded By Document 04/06/19 08:00 [id number] 04/06/19 10:36 [id number] 04/06/19 08:00 PMRU Outcome: Coping/Psychosocial Current Coping Outcome/Goals Verbalization of Acceptance of Rehab Admit Utilization of Appropriate Problem Solving Techniques Progression Toward Outcome/Goals Progressing Current Psychosocial Outcome/Goals Maintain/ Improve Emotional Health Demonstrates Knowledge of Healthy Coping Mechanisms Available Cooperate/ Participate in Plan Progression Toward Outcome/Goals Progressing DVT Prophylaxis- Improve/Maintain Start: 04/03/19 17:52 Freq: DAILY@ Status: Active Target: 04/10/19 Protocol: Activity Type Activity Date Activity User E-Sign Co-Sign Detail Recorded Client Recorded Date Recorded By Document 04/06/19 08:00 [id number] 04/06/19 10:36 [id number] 04/06/19 08:00 PMRU Outcome: DVT Prophylaxis Current DVT Outcome/Goals Remains Free of DVT Complies with DVT Prophylaxis /Treatment Demonstrates Knowledge of DVT Prevention/ Treatment Progression Toward Outcome/Goals Progressing Discharge Planning - Improve/Maintain Start: 04/03/19 17:52 Freq: DAILY@ Status: Active Target: 04/10/19 Protocol: Activity Type Activity Date Activity User E-Sign Co-Sign Detail Recorded Client Recorded Date Recorded By Document 04/06/19 08:00 [id number] 04/06/19 10:36 [id number] 04/06/19 08:00 PMRU Outcome: Discharge Planning Current Discharge Planning Outcome/Goals Demonstrates Understanding of Discharge Plan Homecare Referral - See Comment Progression Toward Outcome/Goals Progressing Education-Improve/Maintain Start: 04/03/19 17:52 Freq: DAILY@699,1899 Status: Active Target: 04/10/19 Protocol: Activity Type Activity Date Activity User E-Sign Co-Sign Detail Recorded Client Recorded Date Recorded By Document 04/06/19 08:00 [id number] 04/06/19 10:36 [id number] 04/06/19 08:00 PMRU Outcome: Education Current Education Outcome/Goals Demonstrate/ Verbalize Understanding of Written Discharge Instructions Demonstrates Skills Encourage Questions Progression Toward Outcome/Goals Progressing /GI-Improve/Maintain Start: 04/03/19 17:52 Freq: DAILY@0700,1900 Status: Active Target: 04/10/19 Protocol: Activity Type Activity Date Activity User E-Sign Co-Sign Detail Recorded Client Recorded Date Recorded By Document 04/06/19 08:00 [id number] 04/06/19 10:36 [id number] 04/06/19 08:00 PMRU Outcome: Genitourinary/ Gastrointestinal Current Gastrointestinal Outcome/Goals Maintain/ Achieve Bowel Regularity in Accordance with Pt's Baseline Remain Free of Emesis Prevent Constipation Laxatives as Ordered Progression Toward Outcome/Goals Progressing Current Genitourinary Outcome/Goals Maintain/ Achieve Urinary Continence Maintain/ Achieve Adequate Urinary Output Remain Free of Hospital- Acquired UTI Progression Toward Outcome/Goals Progressing Medication Administration Start: 04/03/19 17:52 Freq: DAILY@699,1899 Status: Active Target: 04/10/19 Protocol: Activity Type Activity Date Activity User E-Sign Co-Sign Detail Recorded Client Recorded Date Recorded By Document 04/06/19 08:00 [id number] 04/06/19 10:36 [id number] 04/06/19 08:00 PMRU Outcome: Medication Administration Assess Patient Knowledge/Teach Med Yes Education for all Meds Current Workers Compensation Claims Examiner Outcome/Goals Patient Independent with Medication Administration at Home Demonstrates Understanding Progression Towards Outcome/Goals Progressing Is Patient Going Home on Lovenox? No Metabolic Status- Improve/Maintain Start: 04/03/19 17:52 Freq: DAILY@699,1900 Status: Active Target: 04/10/19 Protocol: Activity Type Activity Date Activity User E-Sign Co-Sign Detail Recorded Client Recorded Date Recorded By Document 04/06/19 08:00 [id number] 04/06/19 10:36 [id number] 04/06/19 08:00 PMRU Outcome: Metabolic Status Have Fingersticks Been Ordered Yes Fingerstick Order Frequency AC & HS Current Metabolic Status Outcome/Goals Maintain/ Improve Metabolic Status Demonstrate Knowledge of Prevention/ Treatment of Metabolic Imbalances Progression Toward Outcome/Goals Progressing Mobility- Improve/Maintain Start: 04/03/19 17:52 Freq: DAILY@699,1900 Status: Active Target: 04/10/19 Protocol: Activity Type Activity Date Activity User E-Sign Co-Sign Detail Recorded Client Recorded Date Recorded By Document 04/04/19 12:33 [id number] 04/04/19 12:34 [id number] 04/04/19 12:33 PMRU Outcome: Mobility Physical Therapy Evaluation and Yes Treatment Activity OOB with Assistance Yes Device Yes: FWW Assistance Yes: Min-CGA Patient to be seen 5x/wk for 60-120 min/ Therex day for: Mobility Training Gait Training W/C Mobility Balance Current Mobility Outcome/Goals Maintain/ Achieve Baseline Mobility Status Improve Mobility Status Demonstrates Proper Use of Assistive Devices Free from Complications of Immobility Progression Toward Outcome/Goals Goal Initiation Bed Mobility Yes: Ind Transfers Yes: Ind with FWW Gait x ft Yes: Ind with FWW x150ft Up/Down Stairs Yes: Ind with 1 rail x1 flight With HEP Yes: Ind Neurological- Improve/Maintain Start: 04/03/19 17:52 Freq: DAILY@0700,1900 Status: Active Target: 04/10/19 Protocol: Activity Type Activity Date Activity User E-Sign Co-Sign Detail Recorded Client Recorded Date Recorded By Document 04/06/19 08:00 [id number] 04/06/19 10:36 [id number] 04/06/19 08:00 PMRU Outcome: Neurological Weakness/Aphasia Weakness Current Neurological Outcome/Goals Maintain/ Achieve Baseline Neurological Status Improve Neurological Status Prevent Avoidable Neurological Decline Demonstrate Knowledge of Prevention/Tx of Neuro Disorders/ Complication Maintain/ Improve Strength/ROM Progression Toward Outcome/Goals Progressing Pain/Comfort- Improve/Maintain Start: 04/03/19 17:52 Freq: DAILY@699,1900 Status: Complete Target: 04/10/19 Protocol: Activity Type Activity Date Activity User E-Sign Co-Sign Detail Recorded Client Recorded Date Recorded By Document 04/05/19 07:00 [id number] 04/05/19 09:02 [id number] 04/05/19 07:00 PMRU Outcome: Pain/Comfort Current Pain/Comfort Outcome/Goals Demonstrates Knowledge and Use of Available Comfort Measures Achieves Acceptable Comfort/Pain Level as Determined by Patient/Condit Maintain Comfort Level Allowing Patient to Fully Participate in Rehab Progression Toward Outcome/Goals Goals Met Outcome/Goals Met Achieves Acceptable Comfort/Pain Level as Determined by Patient/Condit Maintain Comfort Level Allowing Patient to Fully Participate in Rehab Rec Therapy- Improve/Maintain Start: 04/03/19 16:46 Freq: DAILY@0700,1900 Status: Active Target: 04/07/19 Protocol: Activity Type Activity Date Activity User E-Sign Co-Sign Detail Recorded Client Recorded Date Recorded By Document 04/03/19 16:46 [id number] [email or web address] 04/03/19 16:47 [id number] 04/03/19 16:46 PMRU Outcome: Recreation Therapy Current Rec Ther Outcome/Goals Complete Rec Therapy Assessment Meet with Patient Regularly for Support Encourage Leisure Involvement Progression Toward Outcome/Goals Goal Initiation Safety- Improve/Maintain Start: 04/03/19 15:35 Freq: DAILY@0700,1900 Status: Active Target: 04/10/19 Protocol: Activity Type Activity Date Activity User E-Sign Co-Sign Detail Recorded Client Recorded Date Recorded By Document 04/06/19 08:00 [id number] [email or web address] 04/06/19 10:36 [id number] 04/06/19 08:00 PMRU Outcome: Safety Current Safety Outcome/Goals Remain Free of Injury or Harm Cooperates with Safety Measures for Least Restrictive Environment Prevent Falls/ Injury Progression Toward Outcome/Goals Progressing - Interdisciplinary Staff Present Nursing Staff Present: Korni Ibanez, RN OT Staff Present: Alissa Mcfadden PT Staff Present: Sivan Cooper Note: Length of Stay: 8 days Anticipated Discharge Destination: Home Tentative Discharge Date: 04/14/19 Discharged to: home
--- NOTE | 2019-04-06 17:16 | PN ---
Progress Note Date of Service: 04/06/19 Note: RADHA THOMAS was visited. Therapy notes read and reviewed. He was discussed in interdisciplinary plan of care rounds. DOing okay but balance a little off. Blood sugars a little better Current Medications: Active Medications Generic Name Dose Route Start Last Admin Trade Name Freq PRN Reason Stop Dose Admin Acetaminophen 650 mg 04/03/19 16:29 Tylenol Tab* PO Q6H PRN MILD PAIN or TEMP > 100.4 Amlodipine Besylate 5 mg 04/05/19 17:26 04/06/19 08:10 Norvasc Tab* PO 5 mg DAILY LISA Administration Atorvastatin Calcium 20 mg 04/04/19 17:00 04/05/19 17:13 Lipitor* PO 20 mg 1700 LISA Administration Dextrose 25 ml 04/04/19 14:31 Dextrose 50% Vial 50 Ml* IV PUSH .FOR FS < 60 - SS PRN FS < 60 Docusate Sodium 100 mg 04/03/19 16:29 Colace Cap* PO BID PRN CONSTIPATION Glipizide 5 mg 04/03/19 17:00 04/06/19 08:10 Glucotrol Tab* PO 5 mg 0800,1700 LISA Administration Insulin Human Lispro 0 - 12 units 04/04/19 16:30 04/06/19 12:42 Humalog* SUBCUT 1 unit ACHS LISA Administration Protocol Levothyroxine Sodium 100 mcg 04/04/19 06:00 04/06/19 06:02 Synthroid Tab* PO 100 mcg DAILY@0600 LISA Administration Lisinopril 10 mg 04/06/19 09:00 04/06/19 08:10 Prinivil Tab* PO 10 mg DAILY LISA Administration Loperamide HCl 2 mg 04/03/19 16:38 04/04/19 21:33 Imodium Cap* PO 2 mg .SEE DIRECTIONS PRN Administration DIARRHEA Magnesium Hydroxide 30 ml 04/03/19 16:29 Milk Of Magnesia Liq* PO Q6H PRN CONSTIPATION Metformin HCl 500 mg 04/03/19 17:00 04/06/19 08:09 Glucophage* PO 500 mg 0800,1700 LISA Administration Oxycodone/Acetaminophen 1 tab 04/03/19 16:43 04/03/19 17:43 Percocet 5/325 Tab* PO 1 tab Q4H PRN Administration PAIN - MODERATE Senna 2 tab 04/03/19 16:29 Senokot 8.6 Mg Tab* PO BEDTIME PRN CONSTIPATION Sertraline HCl 200 mg 04/03/19 21:00 04/05/19 21:39 Zoloft* PO 200 mg 2100 LISA Administration Topiramate 25 mg 04/03/19 21:00 04/06/19 08:10 Topamax(*) PO 25 mg BID LISA Administration Vital Signs: Vital Signs Temp Pulse Resp BP Pulse Ox 99.3 F 95 18 115/57 97 04/06/19 16:06 04/06/19 16:06 04/06/19 16:06 04/06/19 16:06 04/06/19 16:06 Lab Results: Laboratory Results - last 24 hr 04/05/19 04/05/19 04/06/19 16:11 21:28 04:23 WBC RBC Hgb Hct MCV MCH MCHC RDW Plt Count MPV Neut % (Auto) Lymph % (Auto) Blair % (Auto) Eos % (Auto) Baso % (Auto) Absolute Neuts (auto) Absolute Lymphs (auto) Absolute Monos (auto) Absolute Eos (auto) Absolute Basos (auto) Absolute Nucleated RBC Nucleated RBC % Sodium 134 L Potassium 4.0 Chloride 101 Carbon Dioxide 26 Anion Gap 7 BUN 19 Creatinine 0.61 L Est GFR ( Amer) 157.2 Est GFR (Non-Af Amer) 129.9 BUN/Creatinine Ratio 31.1 H Glucose 192 H POC Glucose (mg/dL) 248 H 79 Calcium 9.1 Total Bilirubin 0.80 AST 21 ALT 29 Alkaline Phosphatase 71 Total Protein 6.2 L Albumin 3.8 Globulin 2.4 Albumin/Globulin Ratio 1.6 04/06/19 04:25 WBC 5.0 RBC 4.16 L Hgb 12.7 L Hct 36 L MCV 87 MCH 31 MCHC 35 RDW 14 Plt Count 134 L MPV 7.2 L Neut % (Auto) 64.3 Lymph % (Auto) 23.4 Blair % (Auto) 9.4 Eos % (Auto) 2.6 Baso % (Auto) 0.3 Absolute Neuts (auto) 3.2 Absolute Lymphs (auto) 1.2 Absolute Monos (auto) 0.5 Absolute Eos (auto) 0.1 Absolute Basos (auto) 0.0 Absolute Nucleated RBC 0.0 Nucleated RBC % 0.2 Sodium Potassium Chloride Carbon Dioxide Anion Gap BUN Creatinine Est GFR ( Amer) Est GFR (Non-Af Amer) BUN/Creatinine Ratio Glucose POC Glucose (mg/dL) Calcium Total Bilirubin AST ALT Alkaline Phosphatase Total Protein Albumin Globulin Albumin/Globulin Ratio Exam: GENERAL: In no distress NECK: Immobilized in collar LUNGS: Clear bilaterally HEART: Reg rhythm ABDOMEN: Soft EXTREMITIES: Intrinsic muscle wasting in hands and feet NEUROLOGIC: decreased sensation in hands and feet. Muscle strength 4/5 handgrip , 4+/5 otherwise Assessment/Plan: 1. Cervical Myelopathy C1, S/P C1-4 fusion: Collar on when OOB. PT/OT 2. Diabetes: Metformin/Glipizide/SSI 3. Bipolar Disease: Topamax/Zoloft 4. Hypothyroidism: Synthroid 5. HTN: Lisinopril (instead of Benazepril) and Norvasc, cut lisinopril to 10, will cut Norvasc to 2.5 6. DVT Prophylaxis: TEDs 7. Advance Directives: Full code. is HCP 04/06/19 17:16 04/06/19 17:17
[2019-04-06] MEDS: Atorvastatin* 20 MG TAB PO SCH (17:33)
[2019-04-06] MEDS: Sertraline* 100 MG TAB PO SCH (21:06)
[2019-04-07] MEDS: Levothyroxine TAB* 100 MCG TAB PO SCH (05:45)
[2019-04-07] MEDS: glipiZIDE TAB* 5 MG PO SCH ×2 (08:26→17:57)
[2019-04-07] MEDS: amLODIPine TAB* 5 MG PO SCH (08:26)
[2019-04-07] MEDS: Lisinopril TAB* 10 MG PO SCH (08:26)
[2019-04-07] MEDS: metFORMIN* 500 MG TAB PO SCH ×2 (08:26→17:57)
[2019-04-07] MEDS: Topiramate TAB(*) 25 MG PO SCH ×2 (08:27→20:57)
[2019-04-07] MEDS: Insulin LISPRO* 1 UNITS UNIT SUBCUT SCH ×4 (08:34→20:56)
--- NOTE | 2019-04-07 12:28 | PMRUTEAM ---
PMRU: Team Meeting Current Status: Physical Therapy: Current Status Current Rolling Status Independent Current Supine <-> Sit Status Independent Current Sit <-> Stand Status Supervision/Touching Current Bed <-> Chair Status Partial/Moderate Transfer/Bed Mobility Rolling Walker Recommended Devices Transfer Mobility Comment CGAx1 with RW Current Picking Up Object Supervision/Touching Status Current Car Transfer Status Not attempted due to Current Ambulation Assistance Supervision/Touching Status Ambulation Assistive Device Rolling Walker Ambulation Conditions Two or More Turns,Uneven Surfaces Current Ambulation Distance 150 Ambulation Comment CGAx1 Manual Wheelchair Control/ Bilateral LE's Technique Current Wheelchair Propulsion Supervision/Touching Ability Status Wheelchair Distance (ft) 3x50' Current Stair Climbing Status Supervision/Touching Stair Climbing Assistive Left Railing,Right Railing Devices Number of Stairs Climbed 12 Current Curb Assistance Status Partial/Moderate Curb Assistive Devices Rolling Walker Objective Comments 12 steps with use of 1 rail, CGAx1 - step-to gait pattern with cues for sequencing and safety. Occupational Therapy: Current Status Current Upper Body Dressing Partial/Moderate Status Current Lower Body Dressing Supervision/Touching Status Current Footwear Status Supervision/Touching Current Bathing Status Partial/Moderate Current Grooming Status Setup or Clean-up Assist Current Toileting Status Supervision/Touching Current Toilet Transfer Status Supervision/Touching Current Eating Status Independent Nursing: Current Status Skin Deviations [Left Lower Abrasion Leg] Skin Deviations [Bilateral Abrasion Lower Anterior Leg] Skin Deviations [Posterior Incision Midline Cervical Spine] Skin Deviation Description [ optifoam, dry and intact Right Lower Leg] Skin Deviation Description [ scab over Left Lower Leg] Skin Deviation Description [ washed with soap and water. r lower leg area open. Bilateral Lower Anterior Leg] l lower leg area healing well. Optifoam applied to both Skin Deviation Description [ drsg in place, dry and intact Posterior Midline Cervical Spine] Bladder Current Status voids in bathroom with supervision Bowel Current Status last BM 04/05 Nutrition Current Status appropriate Medication Current Status pt concerned about insulin admin, does not get insulin shot at home Rec Therapy: Current Status Summary of Assessment and Recreation Therapy assessment complete and pt. is Clinical Impression aware of services. Pt. was pleasant, cooperative , and interested in leisure visits and pet therapy while on the unit. Treatment Goals Pt. will engage in leisure activities while on the unit. Treatment Plan Provide recreation therapy and encourage involvement. Goals: Physical Therapy: Goals Goals to Be Accomplished in ( 5-7 Days) Goal: Rolling Assistance Independent Goal Supine <-> Sit Status Independent Goal Sit <-> Stand Status Independent Goal Bed <-> Chair Status Independent Transfer/Bed Mobility Rolling Walker Recommended Devices Goal: Picking Up Object Independent Goal: Car Transfer Status Setup or Clean-up Assist Goal: Ambulation Assistance Independent Ambulation Assistive Devices Rolling Walker Ambulation Distance (ft) 150 Goal: Stairs Assistance Independent Stairs Recommended Devices Two Rails Number of Stairs 12 Goal: Curb Assistance Independent Goal: Home Exercise Program Independent Assistance Occupational Therapy: Goals Goals to be Completed in (Days 5-7 ) Goal Upper Body Dressing Independent Routine Goal Lower Body Dressing Independent Routine Goal Footwear Status Independent Goal Bathing Routine (OT) Independent Goal Grooming Routine Independent Goal Toilet Hygiene and Independent Clothing Management Routine Goal Toilet Transfer Routine Independent Goal Functional Transfers for Independent ADL Goal Feeding Routine Independent Nursing: Goals Bladder Goal independent Bowel Goal independent Nutrition Goal 100% of all meals consumed Medication Goal independent Care Plan: Care Plan ADL's - Improve/Maintain Start: 04/03/19 17:52 Freq: DAILY@[id number] Status: Active Target: 04/10/19 Protocol: Activity Type Activity Date Activity User E-Sign Co-Sign Detail Recorded Client Recorded Date Recorded By Document 04/06/19 11:56 [id number] [id number] 04/06/19 11:56 [id number] 04/06/19 11:56 PMRU Outcome: ADL's/ADL Transfers Orders/Interventions Occupational Therapy Evaluation & Treatment Communication Tool in Patient Room Device Yes Address Deficits Secondary To: cervical decompression sx Patient to receive OT 5x/wk for 60-120 Therex min/day Self Care Management Group Therapy UE/LE ADL's with Assist Yes: Shahriar UB, Chloe LB ADL Transfers with Assist Yes: Shahriar Toileting: Transfers,Clothing Management Yes: Shahriar ,Hygeine w/Assist Light Kitchen/Laundry w/Assist No Other Outcome/Goals Pt participated well in treatment session, does report lack of motivation, however with encouragement did report it felt better to get dressed in his own clothes rather than stay in hospital gown. Progression Toward Outcome/Goals Progressing Communication-Improve/Maintain Start: 04/03/19 17:52 Freq: DAILY@699,1900 Status: Active Target: 04/10/19 Protocol: Activity Type Activity Date Activity User E-Sign Co-Sign Detail Recorded Client Recorded Date Recorded By Document 04/07/19 07:00 [id number] [email or web address] 04/07/19 10:43 [id number] 04/07/19 07:00 PMRU Outcome: Communication/Cognitive Status Current Communication Outcome/Goals Makes Needs Known Effectively Progression Toward Outcomes/Goals Progressing Coping/Psych-Improve/Maintain Start: 04/03/19 17:52 Freq: DAILY@0700,1900 Status: Active Target: 04/10/19 Protocol: Activity Type Activity Date Activity User E-Sign Co-Sign Detail Recorded Client Recorded Date Recorded By Document 04/07/19 07:00 [id number] [email or web address] 04/07/19 10:43 [id number] 04/07/19 07:00 PMRU Outcome: Coping/Psychosocial Current Coping Outcome/Goals Verbalization of Acceptance of Rehab Admit Verbalization of Sense of Control Over Health Status Utilization of Appropriate Problem Solving Techniques Progression Toward Outcome/Goals Progressing Current Psychosocial Outcome/Goals Maintain/ Improve Emotional Health Demonstrates Knowledge of Healthy Coping Mechanisms Available Cooperate/ Participate in Plan Progression Toward Outcome/Goals Progressing DVT Prophylaxis- Improve/Maintain Start: 04/03/19 17:52 Freq: DAILY@0700,1900 Status: Active Target: 04/10/19 Protocol: Activity Type Activity Date Activity User E-Sign Co-Sign Detail Recorded Client Recorded Date Recorded By Document 04/07/19 07:00 [id number] 04/07/19 10:43 [id number] 04/07/19 07:00 PMRU Outcome: DVT Prophylaxis Current DVT Outcome/Goals Remains Free of DVT Complies with DVT Prophylaxis /Treatment Demonstrates Knowledge of DVT Prevention/ Treatment Progression Toward Outcome/Goals Progressing Discharge Planning - Improve/Maintain Start: 04/03/19 17:52 Freq: DAILY@0700,1900 Status: Active Target: 04/10/19 Protocol: Activity Type Activity Date Activity User E-Sign Co-Sign Detail Recorded Client Recorded Date Recorded By Document 04/07/19 07:00 [id number] [email or web address] 04/07/19 10:43 [id number] 04/07/19 07:00 PMRU Outcome: Discharge Planning Update Patient Family No Current Discharge Planning Outcome/Goals Demonstrates Understanding of Discharge Plan Homecare Referral - See Comment Progression Toward Outcome/Goals Progressing Education-Improve/Maintain Start: 04/03/19 17:52 Freq: DAILY@0700,1900 Status: Active Target: 04/10/19 Protocol: Activity Type Activity Date Activity User E-Sign Co-Sign Detail Recorded Client Recorded Date Recorded By Document 04/07/19 07:00 [id number] [email or web address] 04/07/19 10:43 [id number] 04/07/19 07:00 PMRU Outcome: Education Current Education Outcome/Goals Demonstrate/ Verbalize Understanding of Written Discharge Instructions Demonstrates Skills Encourage Questions Progression Toward Outcome/Goals Progressing /GI-Improve/Maintain Start: 04/03/19 17:52 Freq: DAILY@0700,1900 Status: Active Target: 04/10/19 Protocol: Activity Type Activity Date Activity User E-Sign Co-Sign Detail Recorded Client Recorded Date Recorded By Document 04/07/19 07:00 [id number] 04/07/19 10:43 [id number] 04/07/19 07:00 PMRU Outcome: Genitourinary/ Gastrointestinal Current Gastrointestinal Outcome/Goals Maintain/ Achieve Bowel Regularity in Accordance with Pt's Baseline Remain Free of Emesis Prevent Constipation Laxatives as Ordered Progression Toward Outcome/Goals Progressing Current Genitourinary Outcome/Goals Maintain/ Achieve Urinary Continence Maintain/ Achieve Adequate Urinary Output Remain Free of Hospital- Acquired UTI Progression Toward Outcome/Goals Progressing Medication Administration Start: 04/03/19 17:52 Freq: DAILY@0700,1900 Status: Active Target: 04/10/19 Protocol: Activity Type Activity Date Activity User E-Sign Co-Sign Detail Recorded Client Recorded Date Recorded By Document 04/07/19 07:00 [id number] 04/07/19 10:43 [id number] 04/07/19 07:00 PMRU Outcome: Medication Administration Assess Patient Knowledge/Teach Med No Education for all Meds Current Gym Instructor Outcome/Goals Patient Independent with Medication Administration at Home Demonstrates Understanding Progression Towards Outcome/Goals Progressing Is Patient Going Home on Lovenox? No Metabolic Status- Improve/Maintain Start: 04/03/19 17:52 Freq: DAILY@0700,1900 Status: Active Target: 04/10/19 Protocol: Activity Type Activity Date Activity User E-Sign Co-Sign Detail Recorded Client Recorded Date Recorded By Document 04/07/19 07:00 [id number] 04/07/19 10:43 [id number] 04/07/19 07:00 PMRU Outcome: Metabolic Status Have Fingersticks Been Ordered Yes Fingerstick Order Frequency AC & HS Current Metabolic Status Outcome/Goals Maintain/ Improve Metabolic Status Demonstrate Knowledge of Prevention/ Treatment of Metabolic Imbalances Progression Toward Outcome/Goals Progressing Mobility- Improve/Maintain Start: 04/03/19 17:52 Freq: DAILY@0700,1900 Status: Active Target: 04/10/19 Protocol: Activity Type Activity Date Activity User E-Sign Co-Sign Detail Recorded Client Recorded Date Recorded By Document 04/04/19 12:33 [id number] [email or web address] 04/04/19 12:34 [id number] 04/04/19 12:33 PMRU Outcome: Mobility Physical Therapy Evaluation and Yes Treatment Activity OOB with Assistance Yes Device Yes: FWW Assistance Yes: Min-CGA Patient to be seen 5x/wk for 60-120 min/ Therex day for: Mobility Training Gait Training W/C Mobility Balance Current Mobility Outcome/Goals Maintain/ Achieve Baseline Mobility Status Improve Mobility Status Demonstrates Proper Use of Assistive Devices Free from Complications of Immobility Progression Toward Outcome/Goals Goal Initiation Bed Mobility Yes: Ind Transfers Yes: Ind with FWW Gait x ft Yes: Ind with FWW x150ft Up/Down Stairs Yes: Ind with 1 rail x1 flight With HEP Yes: Ind Neurological- Improve/Maintain Start: 04/03/19 17:52 Freq: DAILY@0700,1900 Status: Active Target: 04/10/19 Protocol: Activity Type Activity Date Activity User E-Sign Co-Sign Detail Recorded Client Recorded Date Recorded By Document 04/07/19 07:00 [id number] [email or web address] 04/07/19 10:43 [id number] 04/07/19 07:00 PMRU Outcome: Neurological Weakness/Aphasia Weakness Current Neurological Outcome/Goals Maintain/ Achieve Baseline Neurological Status Improve Neurological Status Prevent Avoidable Neurological Decline Demonstrate Knowledge of Prevention/Tx of Neuro Disorders/ Complication Maintain/ Improve Strength/ROM Progression Toward Outcome/Goals Progressing Pain/Comfort- Improve/Maintain Start: 04/03/19 17:52 Freq: DAILY@0700,1900 Status: Complete Target: 04/10/19 Protocol: Activity Type Activity Date Activity User E-Sign Co-Sign Detail Recorded Client Recorded Date Recorded By Document 04/05/19 07:00 [id number] [email or web address] 04/05/19 09:02 [id number] 04/05/19 07:00 PMRU Outcome: Pain/Comfort Current Pain/Comfort Outcome/Goals Demonstrates Knowledge and Use of Available Comfort Measures Achieves Acceptable Comfort/Pain Level as Determined by Patient/Condit Maintain Comfort Level Allowing Patient to Fully Participate in Rehab Progression Toward Outcome/Goals Goals Met Outcome/Goals Met Achieves Acceptable Comfort/Pain Level as Determined by Patient/Condit Maintain Comfort Level Allowing Patient to Fully Participate in Rehab Rec Therapy- Improve/Maintain Start: 04/03/19 16:46 Freq: DAILY@0700,1900 Status: Active Target: 04/14/19 Protocol: Activity Type Activity Date Activity User E-Sign Co-Sign Detail Recorded Client Recorded Date Recorded By Document 04/03/19 16:46 [id number] [email or web address] 04/03/19 16:47 [id number] 04/03/19 16:46 PMRU Outcome: Recreation Therapy Current Rec Ther Outcome/Goals Complete Rec Therapy Assessment Meet with Patient Regularly for Support Encourage Leisure Involvement Progression Toward Outcome/Goals Goal Initiation Safety- Improve/Maintain Start: 04/03/19 15:35 Freq: DAILY@00,1900 Status: Active Target: 04/10/19 Protocol: Activity Type Activity Date Activity User E-Sign Co-Sign Detail Recorded Client Recorded Date Recorded By Document 04/06/19 08:00 [id number] [email or web address] 04/06/19 10:36 [id number] 04/06/19 08:00 PMRU Outcome: Safety Current Safety Outcome/Goals Remain Free of Injury or Harm Cooperates with Safety Measures for Least Restrictive Environment Prevent Falls/ Injury Progression Toward Outcome/Goals Progressing - Interdisciplinary Staff Present Sales And Service Consultant/Social Work Staff Present: Lorie Bliss LMSW Nursing Staff Present: Korin Ibanez RN OT Staff Present: Alissa Mcfadden PT Staff Present: Sivan Arriola Rec Therapy Staff Present: Kelsie Turcios PROJECT MANAGEMENT INTERN Staff Present: Angelito Musa Medicine Note: Length of Stay: 3 days Anticipated Discharge Destination: home Tentative Discharge Date: Apr Discharged to: Home
[2019-04-07] MEDS: Atorvastatin* 20 MG TAB PO SCH (17:57)
--- NOTE | 2019-04-07 18:01 | PN ---
Progress Note Date of Service: 04/07/19 Note: RADHA THOMAS JR was visited. Therapy notes read and reviewed. He was discussed in interdisciplinary team rounds. He is doing a lot better than he was yesterday. Current Medications: Active Medications Generic Name Dose Route Start Last Admin Trade Name Freq PRN Reason Stop Dose Admin Acetaminophen 650 mg 04/03/19 16:29 Tylenol Tab* PO Q6H PRN MILD PAIN or TEMP > 100.4 Amlodipine Besylate 2.5 mg 04/07/19 09:00 04/07/19 08:26 Norvasc Tab* PO 2.5 mg DAILY LISA Administration Atorvastatin Calcium 20 mg 04/04/19 17:00 04/06/19 17:33 Lipitor* PO 20 mg 1700 LISA Administration Dextrose 25 ml 04/04/19 14:31 Dextrose 50% Vial 50 Ml* IV PUSH .FOR FS < 60 - SS PRN FS < 60 Docusate Sodium 100 mg 04/03/19 16:29 Colace Cap* PO BID PRN CONSTIPATION Glipizide 5 mg 04/03/19 17:00 04/07/19 08:26 Glucotrol Tab* PO 5 mg 0800,1700 LISA Administration Insulin Human Lispro 0 - 12 units 04/04/19 16:30 04/07/19 12:02 Humalog* SUBCUT 1 unit ACHS LISA Administration Protocol Levothyroxine Sodium 100 mcg 04/04/19 06:00 04/07/19 05:45 Synthroid Tab* PO 100 mcg DAILY@0600 LISA Administration Lisinopril 10 mg 04/06/19 09:00 04/07/19 08:26 Prinivil Tab* PO 10 mg DAILY LISA Administration Loperamide HCl 2 mg 04/03/19 16:38 04/04/19 21:33 Imodium Cap* PO 2 mg .SEE DIRECTIONS PRN Administration DIARRHEA Magnesium Hydroxide 30 ml 04/03/19 16:29 Milk Of Magnesia Liq* PO Q6H PRN CONSTIPATION Metformin HCl 500 mg 04/03/19 17:00 04/07/19 08:26 Glucophage* PO 500 mg 0800,1700 LISA Administration Oxycodone/Acetaminophen 1 tab 04/03/19 16:43 04/03/19 17:43 Percocet 5/325 Tab* PO 1 tab Q4H PRN Administration PAIN - MODERATE Senna 2 tab 04/03/19 16:29 Senokot 8.6 Mg Tab* PO BEDTIME PRN CONSTIPATION Sertraline HCl 200 mg 04/03/19 21:00 04/06/19 21:06 Zoloft* PO 200 mg 2100 LISA Administration Topiramate 25 mg 04/03/19 21:00 04/07/19 08:27 Topamax(*) PO 25 mg BID LISA Administration Vital Signs: Vital Signs Temp Pulse Resp BP Pulse Ox 98.0 F 98 18 112/56 98 04/07/19 17:42 04/07/19 17:42 04/07/19 17:42 04/07/19 17:42 04/07/19 17:42 Lab Results: Laboratory Results - last 24 hr 04/06/19 04/07/19 04/07/19 19:58 07:51 11:42 POC Glucose (mg/dL) 242 H 180 H 139 H 04/07/19 16:21 POC Glucose (mg/dL) 150 H Exam: GENERAL: In no distress NECK: Immobilized in collar LUNGS: Clear bilaterally HEART: Reg rhythm ABDOMEN: Soft EXTREMITIES: Intrinsic muscle wasting in hands and feet NEUROLOGIC: decreased sensation in hands and feet. Muscle strength 4/5 handgrip , 4+/5 otherwise Assessment/Plan: 1. Cervical Myelopathy C1, S/P C1-4 fusion: Collar on when OOB. PT/OT 2. Diabetes: Metformin/Glipizide/SSI 3. Bipolar Disease: Topamax/Zoloft 4. Hypothyroidism: Synthroid 5. HTN: Lisinopril (instead of Benazepril) and Norvasc, cut lisinopril to 10, cut Norvasc to 2.5 6. DVT Prophylaxis: TEDs 7. Advance Directives: Full code. is HCP 04/07/19 18:02 04/07/19 18:02
[2019-04-07] MEDS: Sertraline* 100 MG TAB PO SCH (20:57)
[2019-04-08] MEDS: Levothyroxine TAB* 100 MCG TAB PO SCH (05:40)
[2019-04-08] MEDS: Insulin LISPRO* 1 UNITS UNIT SUBCUT SCH ×4 (08:19→20:47)
[2019-04-08] MEDS: Lisinopril TAB* 10 MG PO SCH (08:20)
[2019-04-08] MEDS: glipiZIDE TAB* 5 MG PO SCH ×2 (08:20→17:25)
[2019-04-08] MEDS: amLODIPine TAB* 5 MG PO SCH (08:20)
[2019-04-08] MEDS: metFORMIN* 500 MG TAB PO SCH ×2 (08:20→17:25)
[2019-04-08] MEDS: Topiramate TAB(*) 25 MG PO SCH ×2 (08:21→20:27)
[2019-04-08] MEDS: Atorvastatin* 20 MG TAB PO SCH (17:25)
[2019-04-08] MEDS: Sertraline* 100 MG TAB PO SCH (20:27)
--- NOTE | 2019-04-08 20:32 | PN ---
Progress Note Date of Service: 04/08/19 Note: RADHA THOMAS JR was visited. Therapy notes read and reviewed. His finger sticks are still a little high and this is concerning to him. He thinks he has another diabetes medicine he is not getting here. Current Medications: Active Medications Generic Name Dose Route Start Last Admin Trade Name Freq PRN Reason Stop Dose Admin Acetaminophen 650 mg 04/03/19 16:29 Tylenol Tab* PO Q6H PRN MILD PAIN or TEMP > 100.4 Amlodipine Besylate 2.5 mg 04/07/19 09:00 04/08/19 08:20 Norvasc Tab* PO 2.5 mg DAILY LISA Administration Atorvastatin Calcium 20 mg 04/04/19 17:00 04/08/19 17:25 Lipitor* PO 20 mg 1700 LISA Administration Dextrose 25 ml 04/04/19 14:31 Dextrose 50% Vial 50 Ml* IV PUSH .FOR FS < 60 - SS PRN FS < 60 Docusate Sodium 100 mg 04/03/19 16:29 Colace Cap* PO BID PRN CONSTIPATION Glipizide 5 mg 04/03/19 17:00 04/08/19 17:25 Glucotrol Tab* PO 5 mg 0800,1700 LISA Administration Insulin Human Lispro 0 - 12 units 04/04/19 16:30 04/08/19 17:26 Humalog* SUBCUT 2 unit ACHS LISA Administration Protocol Levothyroxine Sodium 100 mcg 04/04/19 06:00 04/08/19 05:40 Synthroid Tab* PO 100 mcg DAILY@0600 LISA Administration Lisinopril 10 mg 04/06/19 09:00 04/08/19 08:20 Prinivil Tab* PO 10 mg DAILY LISA Administration Loperamide HCl 2 mg 04/03/19 16:38 04/04/19 21:33 Imodium Cap* PO 2 mg .SEE DIRECTIONS PRN Administration DIARRHEA Magnesium Hydroxide 30 ml 04/03/19 16:29 Milk Of Magnesia Liq* PO Q6H PRN CONSTIPATION Metformin HCl 500 mg 04/03/19 17:00 04/08/19 17:25 Glucophage* PO 500 mg 0800,1700 LISA Administration Oxycodone/Acetaminophen 1 tab 04/03/19 16:43 04/03/19 17:43 Percocet 5/325 Tab* PO 1 tab Q4H PRN Administration PAIN - MODERATE Senna 2 tab 04/03/19 16:29 Senokot 8.6 Mg Tab* PO BEDTIME PRN CONSTIPATION Sertraline HCl 200 mg 04/03/19 21:00 04/07/19 20:57 Zoloft* PO 200 mg 2100 LISA Administration Topiramate 25 mg 04/03/19 21:00 04/08/19 08:21 Topamax(*) PO 25 mg BID LISA Administration Vital Signs: Vital Signs Temp Pulse Resp BP Pulse Ox 98.4 F 80 18 111/61 97 04/08/19 16:23 04/08/19 16:23 04/08/19 16:23 04/08/19 16:23 04/08/19 17:43 Lab Results: Laboratory Results - last 24 hr 04/07/19 04/08/19 04/08/19 20:12 07:23 11:45 POC Glucose (mg/dL) 205 H 161 H 151 H 04/08/19 16:20 POC Glucose (mg/dL) 167 H Exam: GENERAL: In no distress NECK: Immobilized in collar LUNGS: Clear bilaterally HEART: Reg rhythm ABDOMEN: Soft EXTREMITIES: Intrinsic muscle wasting in hands and feet NEUROLOGIC: decreased sensation in hands and feet. Muscle strength 4/5 handgrip , 4+/5 otherwise Assessment/Plan: 1. Cervical Myelopathy C1, S/P C1-4 fusion: Collar on when OOB. PT/OT 2. Diabetes: Metformin/Glipizide/SSI. Will try to find other medicine and if we have it here 3. Bipolar Disease: Topamax/Zoloft 4. Hypothyroidism: Synthroid 5. HTN: Lisinopril (instead of Benazepril) and Norvasc, cut lisinopril to 10, cut Norvasc to 2.5 6. DVT Prophylaxis: TEDs 7. Advance Directives: Full code. is HCP 04/08/19 20:32 04/08/19 20:33
[2019-04-09] MEDS: Levothyroxine TAB* 100 MCG TAB PO SCH (05:48)
[2019-04-09] MEDS: glipiZIDE TAB* 5 MG PO SCH ×2 (08:39→17:28)
[2019-04-09] MEDS: Insulin LISPRO* 1 UNITS UNIT SUBCUT SCH ×4 (08:39→20:47)
[2019-04-09] MEDS: amLODIPine TAB* 5 MG PO SCH (08:40)
[2019-04-09] MEDS: Topiramate TAB(*) 25 MG PO SCH ×2 (08:40→20:24)
[2019-04-09] MEDS: Lisinopril TAB* 10 MG PO SCH (08:40)
[2019-04-09] MEDS: metFORMIN* 500 MG TAB PO SCH ×2 (08:40→17:28)
[2019-04-09] MEDS: oxyCODONE/Acetamin 5/325 MG* TAB PO PRN (13:59)
[2019-04-09] MEDS: Atorvastatin* 20 MG TAB PO SCH (17:28)
--- NOTE | 2019-04-09 18:39 | PN ---
Progress Note Date of Service: 04/09/19 Note: RADHA THOMAS JR was visited. Therapy notes read and reviewed. He seems to be moving very well. His has asked that a psychiatrist see him before he leaves Current Medications: Active Medications Generic Name Dose Route Start Last Admin Trade Name Freq PRN Reason Stop Dose Admin Acetaminophen 650 mg 04/03/19 16:29 Tylenol Tab* PO Q6H PRN MILD PAIN or TEMP > 100.4 Amlodipine Besylate 2.5 mg 04/07/19 09:00 04/09/19 08:40 Norvasc Tab* PO 2.5 mg DAILY LISA Administration Atorvastatin Calcium 20 mg 04/04/19 17:00 04/09/19 17:28 Lipitor* PO 20 mg 1700 LISA Administration Dextrose 25 ml 04/04/19 14:31 Dextrose 50% Vial 50 Ml* IV PUSH .FOR FS < 60 - SS PRN FS < 60 Docusate Sodium 100 mg 04/03/19 16:29 Colace Cap* PO BID PRN CONSTIPATION Glipizide 5 mg 04/03/19 17:00 04/09/19 17:28 Glucotrol Tab* PO 5 mg 0800,1700 LISA Administration Insulin Human Lispro 0 - 12 units 04/04/19 16:30 04/09/19 17:28 Humalog* SUBCUT 2 unit ACHS LISA Administration Protocol Levothyroxine Sodium 100 mcg 04/04/19 06:00 04/09/19 05:48 Synthroid Tab* PO 100 mcg DAILY@0600 LISA Administration Lisinopril 10 mg 04/06/19 09:00 04/09/19 08:40 Prinivil Tab* PO 10 mg DAILY LISA Administration Loperamide HCl 2 mg 04/03/19 16:38 04/04/19 21:33 Imodium Cap* PO 2 mg .SEE DIRECTIONS PRN Administration DIARRHEA Magnesium Hydroxide 30 ml 04/03/19 16:29 Milk Of Magnesia Liq* PO Q6H PRN CONSTIPATION Metformin HCl 500 mg 04/03/19 17:00 04/09/19 17:28 Glucophage* PO 500 mg 0800,1700 LISA Administration Oxycodone/Acetaminophen 1 tab 04/03/19 16:43 04/09/19 13:59 Percocet 5/325 Tab* PO 1 tab Q4H PRN Administration PAIN - MODERATE Senna 2 tab 04/03/19 16:29 Senokot 8.6 Mg Tab* PO BEDTIME PRN CONSTIPATION Sertraline HCl 200 mg 04/03/19 21:00 04/08/19 20:27 Zoloft* PO 200 mg 2100 LISA Administration Topiramate 25 mg 04/03/19 21:00 04/09/19 08:40 Topamax(*) PO 25 mg BID LISA Administration Vital Signs: Vital Signs Temp Pulse Resp BP Pulse Ox 98.3 F 87 16 97/49 98 04/09/19 15:51 04/09/19 15:51 04/09/19 16:23 04/09/19 15:51 04/09/19 16:32 Lab Results: Laboratory Results - last 24 hr 04/08/19 20:30 POC Glucose (mg/dL) 170 H Exam: GENERAL: In no distress NECK: Immobilized in collar LUNGS: Clear bilaterally HEART: Reg rhythm ABDOMEN: Soft EXTREMITIES: Intrinsic muscle wasting in hands and feet NEUROLOGIC: decreased sensation in hands and feet. Muscle strength 4/5 handgrip , 4+/5 otherwise Assessment/Plan: 1. Cervical Myelopathy C1, S/P C1-4 fusion: Collar on when OOB. PT/OT 2. Diabetes: Metformin/Glipizide/SSI. Will try to find other medicine and if we have it here 3. Bipolar Disease: Topamax/Zoloft 4. Hypothyroidism: Synthroid 5. HTN: Lisinopril (instead of Benazepril) and Norvasc, cut lisinopril to 10, cut Norvasc to 2.5 6. DVT Prophylaxis: TEDs 7. Advance Directives: Full code. is HCP 04/09/19 18:39
[2019-04-09] MEDS: Sertraline* 100 MG TAB PO SCH (20:24)
[2019-04-10] MEDS: Levothyroxine TAB* 100 MCG TAB PO SCH (05:57)
[2019-04-10] MEDS: Topiramate TAB(*) 25 MG PO SCH (07:41)
[2019-04-10] MEDS: glipiZIDE TAB* 5 MG PO SCH (07:41)
[2019-04-10] MEDS: metFORMIN* 500 MG TAB PO SCH (07:41)
[2019-04-10] MEDS: Lisinopril TAB* 10 MG PO SCH (07:41)
[2019-04-10] MEDS: amLODIPine TAB* 5 MG PO SCH (07:41)
[2019-04-10] MEDS: Insulin LISPRO* 1 UNITS UNIT SUBCUT SCH ×2 (08:29→12:13)
--- NOTE | 2019-04-10 09:31 | PN ---
Progress Note Date of Service: 04/10/19 Note: RADHA THOMAS was visited. Nursing and therapy notes read and reviewed. No new symptoms overnight. No chest pain, shortness of breath or abdominal pain. Psychiatry to see today. Current Medications: Active Medications Generic Name Dose Route Start Last Admin Trade Name Freq PRN Reason Stop Dose Admin Acetaminophen 650 mg 04/03/19 16:29 Tylenol Tab* PO Q6H PRN MILD PAIN or TEMP > 100.4 Amlodipine Besylate 2.5 mg 04/07/19 09:00 04/10/19 07:41 Norvasc Tab* PO 2.5 mg DAILY LISA Administration Atorvastatin Calcium 20 mg 04/04/19 17:00 04/09/19 17:28 Lipitor* PO 20 mg 1700 LISA Administration Dextrose 25 ml 04/04/19 14:31 Dextrose 50% Vial 50 Ml* IV PUSH .FOR FS < 60 - SS PRN FS < 60 Docusate Sodium 100 mg 04/03/19 16:29 Colace Cap* PO BID PRN CONSTIPATION Glipizide 5 mg 04/03/19 17:00 04/10/19 07:41 Glucotrol Tab* PO 5 mg 0800,1700 LISA Administration Insulin Human Lispro 0 - 12 units 04/04/19 16:30 04/10/19 08:29 Humalog* SUBCUT 2 unit ACHS LISA Administration Protocol Levothyroxine Sodium 100 mcg 04/04/19 06:00 04/10/19 05:57 Synthroid Tab* PO 100 mcg DAILY@0600 LISA Administration Lisinopril 10 mg 04/06/19 09:00 04/10/19 07:41 Prinivil Tab* PO 10 mg DAILY LISA Administration Loperamide HCl 2 mg 04/03/19 16:38 04/04/19 21:33 Imodium Cap* PO 2 mg .SEE DIRECTIONS PRN Administration DIARRHEA Magnesium Hydroxide 30 ml 04/03/19 16:29 Milk Of Magnesia Liq* PO Q6H PRN CONSTIPATION Metformin HCl 500 mg 04/03/19 17:00 04/10/19 07:41 Glucophage* PO 500 mg 0800,1700 LISA Administration Oxycodone/Acetaminophen 1 tab 04/03/19 16:43 04/09/19 13:59 Percocet 5/325 Tab* PO 1 tab Q4H PRN Administration PAIN - MODERATE Senna 2 tab 04/03/19 16:29 Senokot 8.6 Mg Tab* PO BEDTIME PRN CONSTIPATION Sertraline HCl 200 mg 04/03/19 21:00 04/09/19 20:24 Zoloft* PO 200 mg 2100 LISA Administration Topiramate 25 mg 04/03/19 21:00 04/10/19 07:41 Topamax(*) PO 25 mg BID LISA Administration Vital Signs: Vital Signs Temp Pulse Resp BP Pulse Ox 97.8 F 67 18 115/56 98 04/10/19 05:56 04/10/19 05:56 04/10/19 05:56 04/10/19 05:56 04/10/19 05:56 Lab Results: Laboratory Results - last 24 hr 04/09/19 04/09/19 04/09/19 07:44 11:42 11:48 POC Glucose (mg/dL) 176 H 132 H 128 H 04/09/19 04/09/19 16:44 20:25 POC Glucose (mg/dL) 160 H 167 H Exam: GENERAL:No acute distress. Alert and appropriate. NECK: Immobilized collar off in bed. LUNGS: Clear to ausculation bilaterally HEART: Regular rate and rhythm ABDOMEN: + bowel sounds, soft, non-tender, non-distended EXTREMITIES: Intrinsic muscle wasting in hands and feet. No edema NEUROLOGIC: decreased sensation in hands and left foot but known peripheral neuropathy from prior NCS. Muscle strength bilateral 4/5 handgrip, 4+/5 otherwise BUE/BLE with some limited testing of proximal arms due to recent surgery. Assessment/Plan: 1. Cervical Myelopathy C1, S/P C1-4 fusion: Collar on when OOB. PT/OT 2. Diabetes: Metformin/Glipizide/SSI. 3. Bipolar Disease: Topamax/Zoloft. Awaiting psychiatry input on meds per family request. 4. Hypothyroidism: Synthroid 5. HTN: Lisinopril (instead of Benazepril) and Norvasc, cut lisinopril to 10, cut Norvasc to 2.5 6. DVT Prophylaxis: TEDs 7. Advance Directives: Full code. is HCP 8. Dispo: Pt would like to go home and refuses subacute rehab which prefers. He appears competent to make this decision. Discharge pending psychiatry consult. 04/10/19 09:32
--- NOTE | 2019-04-10 14:28 | DS ---
CC: Dr. Lazcano; Dr. Mcdaniel REHABILITATION DISCHARGE SUMMARY: DATE OF ADMISSION: 04/03/19 DATE OF DISCHARGE: 04/10/19 PRIMARY CARE PROVIDER: Dr. Lazcano. NEUROSURGEON: Dr. Mcdaniel with [facility]. REASON FOR ADMISSION: Cervical myelopathy, status post C1-C4 fusion. HISTORY OF PRESENT ILLNESS: For full details of his acute hospitalization leading up to his admission, please see the note dictated by Dr. Peña and also please reference the admission progress and discharge notes from [facility] under Dr. Mcdaniel's service. REHABILITATION COURSE: During his time on the [facility], he remained medically stable. His blood pressure medicine was decreased, specifically amlodipine was cut down to 2.5 mg. He was taking a combination medication at home that included amlodipine and benazepril and so therefore these medications have been split apart such that at home he now will be taking amlodipine 2.5 mg q. day and lisinopril 10 mg q. day. In follow up with his primary care provider; they can determine whether his medications need to be further adjusted. He continued on his medication for hypothyroidism. He was only maintained on glipizide and metformin for his diabetes management with sliding scale insulin. Januvia was not available in the hospital, but can be restarted at discharge. His fingersticks had been slightly high ranging from 128 to 176 in the last 24 hours. He has bipolar disease and remained on his medications. His was concerned about whether his medications needed to be adjusted given some conflicts that they had with each other. He was seen by Psychiatry on 04/10/19 per his 's request. It was felt that his medications were appropriate and he was not in any acute psychological danger. He was cleared to be discharged from that perspective. During the time on [facility], he participated well with physical therapy and at the time of discharge he is independent with bed mobility, transfers with a rolling walker, and ambulating more than 200 feet with a rolling walker. He can climb 12 stairs with 1 rail independently. He had a home exercise program that was printed and reviewed with him. He is to have a cervical collar on when he is out of bed and also wear shoes or socks with traction when transferring or walking with his rolling walker. He also participated with occupational therapy during his stay. At the time of discharge, he is independent with eating. He is independent with sponge bathing. He is independent dressing his lower body, but needs assistance for getting his shirt over his head with the cervical collar on. His was assisting him with dressing prior to admission and will after. He is independent with toileting and toilet transfers using a walker. He will initially need assistance for any home management or cooking tasks. Once again , he is to wear the cervical collar when he is out of bed and wear shoes or socks with traction when walking and transferring. DISCHARGE MEDICATIONS: 1. Acetaminophen 650 mg q.6 hours p.r.n. mild pain. 2. Amlodipine 2.5 mg q. day. 3. Glipizide/metformin 5/500 1 tablet p.o. b.i.d. 4. Lisinopril 10 mg q. day. 5. Januvia 100 mg q. day. 6. Percocet 5/325 one tablet q.12 hours p.r.n. moderate pain. He had a prescription from Dr. Mcdaniel already that was picked up by his on . 7. Sertraline 200 mg q. day. 8. Crestor 10 mg q. day. 9. Levothyroxine 100 mcg q. day. 10. Topiramate 25 mg b.i.d. FOLLOWUP: 1. He will follow up with Dr. Mcdaniel on 04/13/19 at the [place] office at 10: 40 a.m. and arrive by 10:25 a.m. 2. Follow up with Dr. Lazcano in 1 to 2 weeks. 3. A referral is being sent to visiting nurse services for home care. DISCHARGE CONDITION: Fair. DISCHARGE DISPOSITION: Home with family support. DISCHARGE DIAGNOSES: 1. Cervical myelopathy, status post C1-C4 fusion. 2. Bipolar disease. 3. Diabetes mellitus. 4. Attention deficit hyperactivity disorder . 5. Hyperlipidemia. 6. Hypertension. 7. Hypothyroidism. 8. Osteoarthritis affecting his hands. 9. Peripheral neuropathy. [id number]/[facility] #: [id number] MTDD
--- NOTE | 2019-04-10 14:44 | CONS ---
CONSULTATION REPORT: DATE OF CONSULT: 04/10/19 ATTENDING PHYSICIAN: Dr. Marcio Peña. REASON FOR CONSULT: Questionable bipolar pathology. SUBJECTIVE HISTORY: The patient is a 73-year-old white male with a significant medical histo ry of diabetes mellitus as well as chronic back disease and bipolar disorder, who was referred to the physical medicine and rehabilitation unit from the [facility] in [facility] post posterior C1 laminectomy with a C1 through C4 spinal fusion. After surgery, the patient wa s having minimal improvement in weakness and balance and it was felt that physical therapy and occup ational therapy in an intensive inpatient setting was warranted. Since hospitalization, Dr. Peña indicates that Mr. Mcfarland has done well. He has been adherent with the expectations of the RU, parti cipating fully in PT and OT care. They were preparing to discharge Mr. Mcfarland; however, the patient's , Lisette Mcfarland, requested psychiatric evaluation stating that she felt that the patient's bipolar c ondition was not currently stable and she has some reservations about bringing him home. I spoke wit h his on the phone who indicates that Ashutosh is often emotionally and verbally abusive particula rly just before and just after surgery, although she did acknowledge that over the past 2 days he has been more reasonable. When I meet with the patient, he is calm, cooperative and makes excellent eye contact. It is easy to establish a rapport with him. I asked him about his 's concerns and he responds "I don't know what she expects, before surgery I could barely even walk." He indicates that he had significant functional impairments before surgery as exemplified by his inability to walk up or down stairs, he was weak and clumsy, his hands were numb and he would often drop things. 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 Fortu nately, he appears to have had a successful surgical procedure and he states already that he has much better grasp in hands and is ambulating better as well. His attitude is that things will improve wi th respect to his mood once he is home and able to enjoy some of the things that he used to. He flat ly denies depressed mood and he denies all neurovegetative symptoms with the exception of some mild d ecrease in appetite. He denies any recent manic or psychotic symptoms either. PAST PSYCHIATRIC HISTORY: Significant for bipolar disorder, which was diagnosed by retired psychiatr ist, Dr. Sutton. The patient also had a counselor named Enzo Mathew, who similarly has retired. Most recently, the patient is getting his bipolar medications from Dr. Lazcano in [facility]. The patient denies any history of psychiatric hospitalization or any history of suicide. He has had previous negative trials of paroxetine, mirtazapine, fluoxetine, venlafaxine, and escitalopram. The patient denies any history of abuse or neglect. He denies any history of traumatic brain injury . SUBSTANCE ABUSE HISTORY: Negative for alcohol or illicit drug abuse. The patient is a former tobacc o user, who quit in the late . PAST MEDICAL HISTORY: Significant for degenerative disk disease, chronic back pain, hypertension, hy pothyroidism, diabetes mellitus, hyperlipidemia. PAST SURGICAL HISTORY: He is status post C1 laminectomy with C1 through C4 fusion in March of 2019 . MEDICATIONS: Current psychiatric mediations include: 1. Topamax 25 mg twice daily. 2. Sertraline 200 mg daily. ALLERGIES: The patient has no known drug allergies. FAMILY HISTORY: Significant for depression in his mother. SOCIAL HISTORY: The patient was born and raised in the [place] [place] to an intact family. He does h ave 2 older sisters who are still alive. 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 The patient was laid off in 2001 and shortly the reafter went on disability for various physical maladies. He was in 1977 and he has 1 son wh o is age 40, who lives locally. The patient denies any previous service. He is not religio us or spiritual and has no significant legal problems. His hobbies include building things in his gar age and being outdoors. MENTAL STATUS EXAMINATION: The patient is an aging white male with a somewhat straggly valladares, who is clean, calm, well groomed, wearing a blue flannel shirt. He makes good eye contact and is fairly ea sy to establish a rapport with. Speech has a normal rate, tone, and volume. Thought process is line ar and goal directed. Thought content is significant for his desire to be discharged from the [facility]. He is denying suicidal or homicidal ideations. He is denying auditory or visual hallucinations. Insight and judgment are fair given his willingness to follow up with behavioral and physical interve ntions as an outpatient. Cognitively, he is awake and alert with what would appear to be an average intellect. DIAGNOSES: [place] I: Unspecified bipolar disorder. [place] II: Deferred. IMPRESSION: The patient is a 73-year-old white male with a history of significant back issue s, who is status post laminectomy, currently hospitalized on the [facility] where he has been receiving int ensive inpatient OT/PT services and who is pending discharge to the outpatient environment. Psychiat ry is asked to evaluate him due to the patient's 's concerns that his bipolar affective disorder is poorly controlled. Psychiatry sees no evidence at this point of any need for changes in his psych iatric management. He appears to be euthymic and many of the difficulties leading up to surgery and in fact following immediately status post surgery are understandable given his functional limitations and the frustrations those have caused him. I recommend that he follow up mainly with medical and p hysiatric care at this point. If his mood issues become a problem, then certainly he can follow up o n this on an outpatient basis. I have discussed these findings with the patient and his and the y are agreeable. RECOMMENDATIONS TO PRIMARY TEAM: Psychiatry recommends continuation of topiramate and sertraline at their current doses. The patient is psychiatrically cleared for discharge. Thank you for allowing us to participate in this patient's care. [id number]/[facility] #: [id number]
[2019-04-10 16:19] VITALS: BP 123/65
[2019-04-10] MEDS ORDERED: METFORMIN PO SCH (21:00)
[2019-04-10] MEDS ORDERED: glipiZIDE TAB* 5 MG PO SCH (21:00)
[2019-04-10] MEDS ORDERED: GLIPIZIDE PO SCH (21:00)
[2019-04-10] MEDS ORDERED: metFORMIN* 500 MG TAB PO SCH (21:00)
[2019-04-11] MEDS ORDERED: CMCS - SitaGLIPtin (NF) 100 MG TAB PO SCH (09:00)
== END 2019-04-10 15:52 | disposition home health service (06) | DRG 561 ==
LOC: PMRU 15:30
PROVIDERS: ADMIT Physical Medicine & Rehabilitation; ATTEND Physical Medicine & Rehabilitation
PROC: F07Z5ZZ Bed Mobility Treatment (ICD-10-PCS; principal; 2019-04-03)
PROC: F07Z9ZZ Gait Training/Functional Ambulation Treatment (ICD-10-PCS; 2019-04-03)
PROC: F07Z8ZZ Transfer Training Treatment (ICD-10-PCS; 2019-04-03)
PROC: F07Z4ZZ Wheelchair Mobility Treatment (ICD-10-PCS; 2019-04-03)
PROC: F08Z0ZZ Bathing/Showering Techniques Treatment (ICD-10-PCS; 2019-04-03)
PROC: F08Z1ZZ Dressing Techniques Treatment (ICD-10-PCS; 2019-04-03)
PROC: F08Z3ZZ Feeding/Eating Treatment (ICD-10-PCS; 2019-04-03)
PROC: F08Z2ZZ Grooming/Personal Hygiene Treatment (ICD-10-PCS; 2019-04-03)
DX: Z47.89 Encounter for other orthopedic aftercare (principal); E03.9 Hypothyroidism, unspecified; F31.9 Bipolar disorder, unspecified; E11.42 Type 2 diabetes mellitus with diabetic polyneuropathy; F90.9 Attention-deficit hyperactivity disorder, unspecified type; E78.5 Hyperlipidemia, unspecified; I10 Essential (primary) hypertension; M19.042 Primary osteoarthritis, left hand; M19.041 Primary osteoarthritis, right hand; E78.00 Pure hypercholesterolemia, unspecified; Z79.84 Long term (current) use of oral hypoglycemic drugs; Z79.4 Long term (current) use of insulin; Z79.899 Other long term (current) drug therapy; R19.7 Diarrhea, unspecified; Z87.891 Personal history of nicotine dependence; Z81.8 Family history of other mental and behavioral disorders
CPT/HCPCS: 36415; 80053; 85025; A9270-GY